=== PATIENT | male | born 1990 | race Caucasian/White ===

== ENCOUNTER 2022-04-21 17:22 | Inpatient (IN) ==
[2022-04-21] MEDS ORDERED: SODIUM CHLORIDE 0.9% 1000ML 2,000 ML IV ONE (17:57)
[2022-04-21] MEDS ORDERED: ACETAMINOPHEN 500 MG TAB PO STA (18:07)
[2022-04-21] MEDS ORDERED: LACTATED RINGER'S 500 ML IV ONE (18:08)
[2022-04-21] MEDS ORDERED: cefTRIAXone SODIUM 2,000 MG/70 ML BAG IV STA (18:08)
[2022-04-21 18:10] LABS: Basophils # (auto) 0.05 K/uL (0-0.2); Basophils % (auto) 0.3 %; Eosinophils # (auto) 0.07 K/uL (0-0.50); Eosinophils % (auto) 0.4 %; Hematocrit (blood only) 39.2 % (40.1-51.0); Immature Granulocytes # (auto) 0.27 K/uL (0.00-0.02); Immature Granulocytes % (auto) 1.6 %; Lymphocytes # (auto) 0.81 K/uL (1.2-3.4); Lymphocytes % (auto) 4.8 %; Mean Corpuscular Hemoglobin 30.6 pg (25.0-34.0); Mean Corpuscular Hgb Conc 35.7 g/dL (32.0-36.0); Mean Corpuscular Volume 85.8 fL (80.0-100.0); Mean Platelet Volume 9.8 fL (9.4-12.4); Monocytes # (auto) 0.86 K/uL (0.24-0.82); Monocytes % (auto) 5.1 %; Neutrophils # (auto) 14.79 K/uL (1.4-6.5); Neutrophils % (auto) 87.8 %; Platelet Count 202 K/uL (130-400); RDW Coefficient of Variation 11.7 % (11.5-14.5); RDW Standard Deviation 36.3 fL (36.4-46.3); Red Blood Count 4.57 M/uL (4.63-6.08); White Blood Count 16.85 K/ul (4.8-10.8)
--- NOTE | 2022-04-21 18:29 | Emergency Department Note ---
Impression & Plan Lower lobe pneumonia, Sepsis, Syncope and collapse ED Provider Note Provider: Miguelangel Chanel MD DATE OF SERVICE: 04/21/2022 CHIEF COMPLAINT: As of breath, body aches, possible seizure HISTORY OF PRESENT ILLNESS: Patient is a 31-year-old gentleman history of hypertension on valsartan & hydrochlorothiazide presenting here today with illness for the past 3 days. Reports cough and cold symptoms with diffuse myalgias and subjective fevers last day or 2. Has not been eating or drinking that well. Reports diffuse body aches again in the back neck. States that coworkers have recently tested positive for COVID. Not eating and drinking the best. Has been using some DayQuil. Evidently was in the kitchen going to have a couple coffee when the sudden he collapsed and woke up on the floor and had bit the tip of his tongue and urinated himself. No history of seizures reported. Denies specific injury from this fall just complains of some generalized body ache and headache. Unsure how long he may have been on the ground for. Reports some shortness of breath and central chest discomfort. Denies leg swelling. Does some distance for work. REVIEW OF SYSTEMS: A total of 10 review of systems was obtained and negative except as stated above in the HPI. PAST MEDICAL HISTORY: As noted above MEDICATIONS: Reviewed home medications with him SOCIAL HISTORY: Psychiatrist, occasional alcohol, PHYSICAL EXAM: GENERAL: alert and oriented in no acute distress on stretcher fatigued appearing Head: normocephalic and atraumatic EYES: No injection, discharge or icterus. PERRL, EOMI. NECK: Trachea midline. Supple able to range the neck chin to the chest and left and right. ENT: Mucous membranes pink and moist. His slight contusion to the tip of the tongue but no large bite kolb otherwise. Pharynx without erythema or exudate. LUNGS: Airway patent. No retractions. Breath sounds clear with good air entry bilaterally. HEART: Regular tachycardic rate and rhythm. No chest wall tenderness ABDOMEN: Soft and non-tender, without guarding or rebound. SKIN: Acyanotic, warm, diaphoretic EXTREMITIES: Without swelling, tenderness or deformity NEUROLOGICAL: No focal deficits. No aphasia. No facial droop or slurred speech. EK bpm sinus tachycardia. No PVC or PAC. No acute ST segment elevation or depression with a QTC of 440. CONTINUOUS CARDIAC MONITORING: was ordered and showed a heart rate of 100s-130s bpm in sinus tachycardia Patient's laboratory studies and imaging reviewed. Differential includes Infection, dehydration, metabolic abnormality, hypo/hyper glycemia, electrolyte disturbance, anemia, hypoxia, cardiac sources, intracerebral event, toxicologic, neurologic, as well as other pathologies. IMPRESSION/MEDICAL DECISION MAKING: Concern for possible infection. Experiencing some shortness of breath and chest pain and possible seizure today. Awake and alert answering questions now. Given some fluid hydration and Tylenol here. Cultures and lactate sent. Denies significant alcohol use with associated withdrawal. Having significant numbness or focal weakness in the extremities and generalized myalgias. Blood work here without anemia but a leukocytosis is noted. Empirically covered with antibiotics at this point. Viral testing ordered. We will complete a CT of the head given the possible seizure activity today as well as CT of the chest to exclude pneumonia or PE given his infectious symptoms as well as tachycardia and history of some travel. No clinical evidence of DVT on exam. Benign abdomen here. Able to range his neck fairly well and does not appear grossly meningitic. Also 3 days of illness lower suspicion this is be bacterial meningitis. Blood work with mild hyponatremia and hypokalemia. No lactate elevation. Normal renal function. No evidence of hepatitis based on labs. Troponin not elevated. Procalcitonin minimally elevated. CT of the head without acute findings. CT of the chest without PE. Questions bilateral lower lobe opacities/pneumonia. Received commune acquired treatment with ceftriaxone and azithromycin. Patient looking improved on reevaluation. Again flexing his head and sitting up in bed and does not appear grossly meningitic. Discussed with him I have a lower suspicion for meningitis at this time and will defer LP in shared decision-making given the findings. Could have been a seizure versus syncopal episode earlier but now at baseline. Still somewhat tachycardic although not hypoxic or hypotensive. Given this discussed further care here at the hospital and hospitalist was contacted. DIAGNOSIS: Bilateral lower lobe pneumonia, sepsis, syncope and collapse DISPOSITION: Hospitalist will evaluate Patient was agreeable with this plan. Critical Care I have personally spent 35 minutes of critical care time in the direct management of this patient. This includes bedside care, interpretation of diagnostic studies, and testing, discussion with consultants, patient, and family members, and other required patient management activities. These 35 minutes is in excess of all separately billable procedures. Past Med/Surg History Social History Smoking Status: Never smoker Hx Alcohol Use: Yes Alcohol type: beer Hx Substance Use: No Preferred Language: Upper Sorbian Communication Ability: Effective Utilization Engineer Required: No Beliefs That Will Affect Care: None Current Living Situation: Family Feels Safe at Home: Yes Safety Concerns: Feels Safe At This Time Assistive Devices: Glasses Allergies Allergies Allergy/AdvReac Type Severity Reaction Status Date / Time bee venom protein (honey bee) AdvReac Intermediate RED & Verified 04/21/22 20:42 SWOLLEN @ SITE Home Meds Home Medications Medication Instructions Recorded Confirmed atorvastatin 20 mg tablet 20 mg PO DAILY 04/21/22 04/21/22 [id number] 30 ml PO DIRECTED PRN .SYMPTOMS 04/21/22 04/21/22 5 mg-10 mg-325 mg-200mg/15 mL liq (Vicks DayQuil Severe Cold-Flu) valsartan 320 1 tab PO DAILY 04/21/22 04/21/22 mg-hydrochlorothiazide 25 mg tablet Results & Data (ED) Vital Signs Vital Signs - 24 hr 04/21/22 17:31 04/21/22 17:47 04/21/22 17:50 Temperature 37.6 C H Temperature Source Temporal Artery Scan Pulse Rate 156 H 140 H 137 H Pulse Rate from SpO2 Sensor Respiratory Rate 19 25 H 29 H Respiratory Effort / Characteristics Non-Labored Spontaneous Respiratory Depth Normal Blood Pressure 114/65 Blood Pressure Mean 81 Pulse Oximetry 92 Oxygen Delivery Method Room Air Sepsis Recent Fever Within 48 Hours Yes Sepsis New/Unexplained Change in Mental Status N/A Sepsis Action Taken by Nursing No Action Required 04/21/22 17:53 04/21/22 17:53 04/21/22 18:00 Temperature Temperature Source Pulse Rate 137 H Pulse Rate from SpO2 Sensor Respiratory Rate 26 H Respiratory Effort / Characteristics Respiratory Depth Blood Pressure 125/77 131/80 Blood Pressure Mean 93 97 Pulse Oximetry Oxygen Delivery Method Sepsis Recent Fever Within 48 Hours Sepsis New/Unexplained Change in Mental Status Sepsis Action Taken by Nursing 04/21/22 18:00 04/21/22 18:10 04/21/22 18:20 Temperature Temperature Source Pulse Rate 132 H 123 H 117 H Pulse Rate from SpO2 Sensor 124 H 118 H Respiratory Rate 17 31 H 28 H Respiratory Effort / Characteristics Respiratory Depth Blood Pressure Blood Pressure Mean Pulse Oximetry 92 93 Oxygen Delivery Method Sepsis Recent Fever Within 48 Hours Sepsis New/Unexplained Change in Mental Status Sepsis Action Taken by Nursing 04/21/22 18:30 04/21/22 18:30 04/21/22 19:07 Temperature Temperature Source Pulse Rate 116 H Pulse Rate from SpO2 Sensor 117 H Respiratory Rate 32 H Respiratory Effort / Characteristics Respiratory Depth Blood Pressure 121/74 121/67 Blood Pressure Mean 89 85 Pulse Oximetry 90 Oxygen Delivery Method Sepsis Recent Fever Within 48 Hours Sepsis New/Unexplained Change in Mental Status Sepsis Action Taken by Nursing 04/21/22 19:07 04/21/22 19:10 04/21/22 19:20 Temperature Temperature Source Pulse Rate 114 H 108 H Pulse Rate from SpO2 Sensor 114 H 117 H 107 H Respiratory Rate 20 24 Respiratory Effort / Characteristics Respiratory Depth Blood Pressure Blood Pressure Mean Pulse Oximetry 94 93 94 Oxygen Delivery Method Sepsis Recent Fever Within 48 Hours Sepsis New/Unexplained Change in Mental Status Sepsis Action Taken by Nursing 04/21/22 19:30 04/21/22 19:30 04/21/22 19:40 Temperature Temperature Source Pulse Rate 101 H 105 H Pulse Rate from SpO2 Sensor 102 H 104 H Respiratory Rate 24 27 H Respiratory Effort / Characteristics Respiratory Depth Blood Pressure 119/73 Blood Pressure Mean 88 Pulse Oximetry 94 92 Oxygen Delivery Method Room Air Sepsis Recent Fever Within 48 Hours Sepsis New/Unexplained Change in Mental Status Sepsis Action Taken by Nursing 04/21/22 19:50 Temperature 37.0 C Temperature Source Pulse Rate 100 H Pulse Rate from SpO2 Sensor 99 H Respiratory Rate 29 H Respiratory Effort / Characteristics Respiratory Depth Blood Pressure Blood Pressure Mean Pulse Oximetry 93 Oxygen Delivery Method Room Air Sepsis Recent Fever Within 48 Hours Sepsis New/Unexplained Change in Mental Status Sepsis Action Taken by Nursing Laboratory Data Result diagrams: 04/21/22 17:53 04/21/22 17:53 Lab Results 04/21/22 04/21/22 04/21/22 Range/Units 17:53 17:53 17:53 WBC 16.85 H (4.8-10.8) K/ul RBC 4.57 L (4.63-6.08) M/uL Hgb 14.0 (14.0-18.0) g/dl Hct 39.2 L (40.1-51.0) % MCV 85.8 (80.0-100.0) fL MCH 30.6 (25.0-34.0) pg MCHC 35.7 (32.0-36.0) g/dL RDW Std Deviation 36.3 L (36.4-46.3) fL RDW Coeff of Maverick 11.7 (11.5-14.5) % Plt Count 202 (130-400) K/uL MPV 9.8 (9.4-12.4) fL Immature Gran % (Auto) 1.6 % Neut % (Auto) 87.8 % Lymph % (Auto) 4.8 % [place] % (Auto) 5.1 % Eos % (Auto) 0.4 % Baso % (Auto) 0.3 % Neut # (Auto) 14.79 H (1.4-6.5) K/uL Lymph # (Auto) 0.81 L (1.2-3.4) K/uL [place] # (Auto) 0.86 H (0.24-0.82) K/uL Eos # (Auto) 0.07 (0-0.50) K/uL Baso # (Auto) 0.05 (0-0.2) K/uL Immature Gran # (Auto) 0.27 H (0.00-0.02) K/uL PT 11.0 (9.0-12.0) Seconds INR 1.0 (0.9-1.1) APTT 29.1 (21.0-31.0) Seconds PTT Ratio 1.1 Sodium 132 L (136-145) mmol/L Potassium 3.0 L (3.5-5.1) mmol/L Chloride 96 L (98-107) mmol/L Carbon Dioxide 23 (21-32) mmol/L Anion Gap 13 H (3-11) BUN 11 (6-23) mg/dl Creatinine 0.89 (0.6-1.4) mg/dl Est Cr Clr Drug Dosing 130.8 ml/min Est GFR ( Amer) 131.1 ml/min Est GFR (Non-Af Amer) 113.1 ml/min BUN/Creatinine Ratio 12.4 (10-20) Glucose 144 H (70-99(Fasting)) mg/dl Lactate (0.4-2.0) mmol/L Calcium 9.8 (8.5-10.1) mg/dl Magnesium 1.9 (1.7-2.4) mg/dl Total Bilirubin 0.7 (0.2-1.0) mg/dl AST 17 (13-39) U/L ALT 29 (7-52) U/L Alkaline Phosphatase 91 (34-104) U/L Troponin I High Sens 10.1 (0-20) pg/ml Total Protein 8.0 (6.0-8.3) gm/dl Albumin 4.6 (3.4-5.0) gm/dl Globulin 3.4 (2.5-4.0) gm/dl Albumin/Globulin Ratio 1.4 (0.9-2) Procalcitonin (0-0.5) ng/ml Urine Color Urine Appearance (Clear) Urine pH (4.5-7.5) Ur Specific [place] (1.000-1.030) Urine Protein (Negative) Urine Glucose (UA) (Negative) Urine Ketones (Negative) Urine Blood (Negative) Urine Nitrite (Negative) Urine Bilirubin (Negative) Urine Urobilinogen (Negative) Ur Leukocyte Esterase (Negative) Urine WBC (Auto) (0-5) /hpf Urine RBC (Auto) (0-4) /hpf U Hyaline Cast (Auto) (0-5) /lpf U Epithel Cells (Auto) (0-5) /lpf Urine Bacteria (Auto) (Negative) SARS-CoV-2 (PCR) (Negative) Influenza Type A (PCR) (Neg) Influenza Type B (PCR) (Neg) RSV (RT-PCR) (Neg) 04/21/22 04/21/22 04/21/22 Range/Units 17:53 17:53 19:30 WBC (4.8-10.8) K/ul RBC (4.63-6.08) M/uL Hgb (14.0-18.0) g/dl Hct (40.1-51.0) % MCV (80.0-100.0) fL MCH (25.0-34.0) pg MCHC (32.0-36.0) g/dL RDW Std Deviation (36.4-46.3) fL RDW Coeff of Maverick (11.5-14.5) % Plt Count (130-400) K/uL MPV (9.4-12.4) fL Immature Gran % (Auto) % Neut % (Auto) % Lymph % (Auto) % [place] % (Auto) % Eos % (Auto) % Baso % (Auto) % Neut # (Auto) (1.4-6.5) K/uL Lymph # (Auto) (1.2-3.4) K/uL [place] # (Auto) (0.24-0.82) K/uL Eos # (Auto) (0-0.50) K/uL Baso # (Auto) (0-0.2) K/uL Immature Gran # (Auto) (0.00-0.02) K/uL PT (9.0-12.0) Seconds INR (0.9-1.1) APTT (21.0-31.0) Seconds PTT Ratio Sodium (136-145) mmol/L Potassium (3.5-5.1) mmol/L Chloride (98-107) mmol/L Carbon Dioxide (21-32) mmol/L Anion Gap (3-11) BUN (6-23) mg/dl Creatinine (0.6-1.4) mg/dl Est Cr Clr Drug Dosing ml/min Est GFR ( Amer) ml/min Est GFR (Non-Af Amer) ml/min BUN/Creatinine Ratio (10-20) Glucose (70-99(Fasting)) mg/dl Lactate 1.3 (0.4-2.0) mmol/L Calcium (8.5-10.1) mg/dl Magnesium (1.7-2.4) mg/dl Total Bilirubin (0.2-1.0) mg/dl AST (13-39) U/L ALT (7-52) U/L Alkaline Phosphatase (34-104) U/L Troponin I High Sens (0-20) pg/ml Total Protein (6.0-8.3) gm/dl Albumin (3.4-5.0) gm/dl Globulin (2.5-4.0) gm/dl Albumin/Globulin Ratio (0.9-2) Procalcitonin 1.28 H (0-0.5) ng/ml Urine Color Yellow Urine Appearance Clear (Clear) Urine pH 6.5 (4.5-7.5) Ur Specific [place] 1.006 (1.000-1.030) Urine Protein Trace H (Negative) Urine Glucose (UA) Negative (Negative) Urine Ketones Trace H (Negative) Urine Blood Negative (Negative) Urine Nitrite Negative (Negative) Urine Bilirubin Negative (Negative) Urine Urobilinogen Negative (Negative) Ur Leukocyte Esterase Negative (Negative) Urine WBC (Auto) 1-5 (0-5) /hpf Urine RBC (Auto) 0-4 (0-4) /hpf U Hyaline Cast (Auto) 0 (0-5) /lpf U Epithel Cells (Auto) 5-10 H (0-5) /lpf Urine Bacteria (Auto) Negative (Negative) SARS-CoV-2 (PCR) (Negative) Influenza Type A (PCR) (Neg) Influenza Type B (PCR) (Neg) RSV (RT-PCR) (Neg) 04/21/22 Range/Units 19:30 WBC (4.8-10.8) K/ul RBC (4.63-6.08) M/uL Hgb (14.0-18.0) g/dl Hct (40.1-51.0) % MCV (80.0-100.0) fL MCH (25.0-34.0) pg MCHC (32.0-36.0) g/dL RDW Std Deviation (36.4-46.3) fL RDW Coeff of Maverick (11.5-14.5) % Plt Count (130-400) K/uL MPV (9.4-12.4) fL Immature Gran % (Auto) % Neut % (Auto) % Lymph % (Auto) % [place] % (Auto) % Eos % (Auto) % Baso % (Auto) % Neut # (Auto) (1.4-6.5) K/uL Lymph # (Auto) (1.2-3.4) K/uL [place] # (Auto) (0.24-0.82) K/uL Eos # (Auto) (0-0.50) K/uL Baso # (Auto) (0-0.2) K/uL Immature Gran # (Auto) (0.00-0.02) K/uL PT (9.0-12.0) Seconds INR (0.9-1.1) APTT (21.0-31.0) Seconds PTT Ratio Sodium (136-145) mmol/L Potassium (3.5-5.1) mmol/L Chloride (98-107) mmol/L Carbon Dioxide (21-32) mmol/L Anion Gap (3-11) BUN (6-23) mg/dl Creatinine (0.6-1.4) mg/dl Est Cr Clr Drug Dosing ml/min Est GFR ( Amer) ml/min Est GFR (Non-Af Amer) ml/min BUN/Creatinine Ratio (10-20) Glucose (70-99(Fasting)) mg/dl Lactate (0.4-2.0) mmol/L Calcium (8.5-10.1) mg/dl Magnesium (1.7-2.4) mg/dl Total Bilirubin (0.2-1.0) mg/dl AST (13-39) U/L ALT (7-52) U/L Alkaline Phosphatase (34-104) U/L Troponin I High Sens (0-20) pg/ml Total Protein (6.0-8.3) gm/dl Albumin (3.4-5.0) gm/dl Globulin (2.5-4.0) gm/dl Albumin/Globulin Ratio (0.9-2) Procalcitonin (0-0.5) ng/ml Urine Color Urine Appearance (Clear) Urine pH (4.5-7.5) Ur Specific [place] (1.000-1.030) Urine Protein (Negative) Urine Glucose (UA) (Negative) Urine Ketones (Negative) Urine Blood (Negative) Urine Nitrite (Negative) Urine Bilirubin (Negative) Urine Urobilinogen (Negative) Ur Leukocyte Esterase (Negative) Urine WBC (Auto) (0-5) /hpf Urine RBC (Auto) (0-4) /hpf U Hyaline Cast (Auto) (0-5) /lpf U Epithel Cells (Auto) (0-5) /lpf Urine Bacteria (Auto) (Negative) SARS-CoV-2 (PCR) NEGATIVE (Negative) Influenza Type A (PCR) Negative (Neg) Influenza Type B (PCR) Negative (Neg) RSV (RT-PCR) Negative (Neg) Administered Medications Lactated Ringer's (Lr) 1,000 mls @ 80 mls/hr IV .[id number] ONE Stop: 04/22/22 08:50 Last Infusion: 04/22/22 00:27 Dose: 80 mls/hr Documented By: Admin: 04/21/22 21:03 Dose: 80 mls/hr Documented By: [id number] Discontinued Medications Acetaminophen (Acetaminophen 500 Mg Tab) 1,000 mg PO NOW STA Stop: 04/21/22 18:08 Last Admin: 04/21/22 18:37 Dose: 1,000 mg Documented By: [id number] Azithromycin (Azithromycin 250 Mg Tab) 500 mg PO NOW ONE Stop: 04/21/22 19:39 Last Admin: 04/21/22 19:53 Dose: 500 mg Documented By: [id number] Gadobutrol (Gadobutrol 65ml Vial) 8.5 ml IV ONCE ONE Stop: 04/21/22 23:00 Last Admin: 04/21/22 22:59 Dose: 8.5 ml Documented By: TORSTEN Sodium Chloride (Nss 1000ml) 2,000 mls @ 999 mls/hr IV .Q2H1M ONE Stop: 04/21/22 19:57 Last Infusion: 04/21/22 20:41 Dose: 0 mls/hr Documented By: [id number] Admin: 04/21/22 18:38 Dose: 999 mls/hr Documented By: [id number] Lactated Ringer's (Lr) 500 mls @ 999 mls/hr IV .Q31M ONE Stop: 04/21/22 18:38 Last Infusion: 04/21/22 19:58 Dose: 0 mls/hr Documented By: [id number] Admin: 04/21/22 19:17 Dose: 999 mls/hr Documented By: [id number] Ceftriaxone Sodium (Rocephin) 2,000 mg in 70 mls @ 140 mls/hr IV NOW STA Stop: 04/21/22 18:37 Last Infusion: 04/21/22 19:57 Dose: 0 mls/hr Documented By: [id number] Admin: 04/21/22 19:17 Dose: 140 mls/hr Documented By: [id number] Magnesium Sulfate/Dextrose (Magnesium Sulfate / D5w) 1 gm in 100 mls @ 50 mls/hr IV ONE ONE Stop: 04/21/22 22:13 Last Infusion: 04/22/22 00:27 Dose: 0 mls/hr Documented By: Admin: 04/21/22 21:02 Dose: 50 mls/hr Documented By: [id number] Ioversol (Optiray 320 125ml) 114 ml IV ONCE ONE Stop: 04/21/22 19:04 Last Admin: 04/21/22 19:04 Dose: 114 ml Documented By: MARY Levalbuterol HCl (Levalbuterol Tartrate 15 Gm Hfa.Aer.Ad) 2 puffs INH NOW STA Stop: 04/21/22 20:22 Last Admin: 04/21/22 22:22 Dose: 2 puffs Documented By: KERA Potassium Chloride (Potassium Chloride Crtab 20 Meq Tabcr) 40 meq PO NOW STA Stop: 04/21/22 20:15 Last Admin: 04/21/22 21:02 Dose: 40 meq Documented By: [id number] Potassium Chloride (Potassium Chloride Crtab 20 Meq Tabcr) 40 meq PO TODAY@2300 ONE Stop: 04/21/22 23:01 Last Admin: 04/21/22 23:50 Dose: 40 meq Documented By: [id number] Imaging Data Radiologist's Impression: Chest CTA 04/21/22 18:07 CT angio chest PE protocol CLINICAL HISTORY: PE, tachy, fever, sob TECHNIQUE: Multidetector row helical CT of the chest was performed with angiographic protocol. Coronal and sagittal reformations were obtained. Coronal and sagittal MIPS were obtained from the axial data set and were submitted for review. Automated dose lowering techniques and/or adjustment according to patient size were utilized for this exam. CT DOSE: 508.19 mGycm Comparison: Comparison is made to FINDINGS: Lungs and pleura: Airspace opacities are in the bilateral lower lungs. Heart and pericardium: Heart size is normal. No pericardial effusion. Vessels: Evaluation for pulmonary embolism is limited due to patient motion. No evidence of central, lobar, or segmental embolus. Mediastinum and chalo: Unremarkable. Chest wall and lower neck: Unremarkable. Abdomen: Unremarkable. Bones: Unremarkable. IMPRESSION: 1. No evidence of pulmonary embolism. 2. Bilateral airspace opacities which may represent atelectasis, aspiration, and/or atypical pneumonia. ACT 112: Negative or not required by law. Electronically signed by: Parish Flowers M.D. 04/21/2022 7:[address] 04/21/22 18:07 CT head/brain wo con CLINICAL HISTORY: seizure, fall Technique: Contiguous axial CT images of the head were acquired from the base of the skull to the vertex without intravenous contrast administration. Images were viewed in brain, subdural and bone windows. Automated dose lowering techniques and/or adjustment according to patient size were utilized for this exam. Comparison: None available at the time of this dictation. Findings: The ventricles, basal cisterns, and cerebral sulci are normal. There is no acute intracranial hemorrhage or evidence of acute territorial infarction. Neither mass effect, shift of the midline structures, nor abnormal extra-axial fluid collections are shown. Imaged portions of the paranasal sinuses and mastoid air cells are clear. The orbits appear normal. There are no acute fractures of the calvaria or scalp swelling. Impression: No acute intracranial hemorrhage, no evidence of acute territorial infarction or other acute intracranial disease process. ACT 112: Negative or not required by law. Electronically signed by: Parish Flowers M.D. 04/21/2022 7:10 PM Discharge Plan Visit Data Chief Complaint: Seizure Stated Complaint: HAD SEIZURE AT HOME, POSSIBLY COVID POSITIVE ED Provider: Miguelangel Chanel Discharge Problem: Lower lobe pneumonia, Sepsis, Syncope and collapse Patient Disposition: Admitted As Inpatient Condition: Fair Discharge Instructions Interventions: ED Discharge Assessment Last Done: 04/22/22 00:21
[2022-04-21 18:31] LABS: Partial Thromboplastin Ratio 1.1; Partial Thromboplastin Time 29.1 Seconds (21.0-31.0)
[2022-04-21 18:34] LABS: Troponin I High Sensitivity 10.1 pg/ml (0-20)
[2022-04-21 18:35] LABS: Albumin Globulin Ratio 1.4 (0.9-2); Albumin Level 4.6 gm/dl (3.4-5.0); BUN Creatinine Ratio 12.4 (10-20); Bilirubin,Total 0.7 mg/dl (0.2-1.0); Calcium 9.8 mg/dl (8.5-10.1); Creatinine Clr Calc Pharmacy 130.8 ml/min; Est GFR (African American) 131.1 ml/min; Est GFR (Non-African American) 113.1 ml/min; Globulin 3.4 gm/dl (2.5-4.0); Magnesium 1.9 mg/dl (1.7-2.4)
[2022-04-21] MEDS ORDERED: OPTIRAY 320 125ml IV ONE (19:03)
--- NOTE | 2022-04-21 19:11 | CT Scan Report ---
CT head/brain wo con CLINICAL HISTORY: seizure, fall Technique: Contiguous axial CT images of the head were acquired from the base of the skull to the bradley kaylynn without intravenous contrast administration. Images were viewed in brain, subdural and [facility]. Automated dose lowering techniques and/or adjustment according to patient size were utilized for this exam. Comparison: None available at the time of this dictation. Findings: The ventricles, basal cisterns, and cerebral sulci are normal. There is no acute intracranial hemorrh age or evidence of acute territorial infarction. Neither mass effect, shift of the midline structures , nor abnormal extra-axial fluid collections are shown. Imaged portions of the paranasal sinuses and mastoid air cells are clear. The orbits appear normal. There are no acute fractures of the calvaria or scalp swelling. Impression: No acute intracranial hemorrhage, no evidence of acute territorial infarction or other acute intracra nial disease process. ACT 112: Negative or not required by law. Electronically signed by: Parish Flowers M.D. 04/21/2022 7:10 PM
--- NOTE | 2022-04-21 19:29 | CT Scan Report ---
CT angio chest PE protocol CLINICAL HISTORY: PE, tachy, fever, sob TECHNIQUE: Multidetector row helical CT of the chest was performed with angiographic protocol. Patel l and sagittal reformations were obtained. Coronal and sagittal MIPS were obtained from the axial reuben a set and were submitted for review. Automated dose lowering techniques and/or adjustment according to patient size were utilized for this exam. CT DOSE: 508.19 mGycm Comparison: Comparison is made to FINDINGS: Lungs and pleura: Airspace opacities are in the bilateral lower lungs. Heart and pericardium: Heart size is normal. No pericardial effusion. Vessels: Evaluation for pulmonary embolism is limited due to patient motion. No evidence of central, lobar, or segmental embolus. Mediastinum and chalo: Unremarkable. Chest wall and lower neck: Unremarkable. Abdomen: Unremarkable. Bones: Unremarkable. IMPRESSION: 1. No evidence of pulmonary embolism. 2. Bilateral airspace opacities which may represent atelectasis, aspiration, and/or atypical pneumon ia. ACT 112: Negative or not required by law. Electronically signed by: Parish Flowers M.D. 04/21/2022 7:27 PM
[2022-04-21] MEDS ORDERED: AZITHROMYCIN 250 MG TAB PO ONE (19:38)
[2022-04-21 19:55] LABS: Appearance Urine Clear (Clear); Bacteria Urine Automated Negative (Negative); Bilirubin Urine Negative (Negative); Blood Urine Negative (Negative); Cast Urine Automated 0 /lpf (0-5); Color Urine Yellow; Glucose Urine UA Negative (Negative); Ketones Urine Trace (Negative); Leukocyte Esterase Urine Negative (Negative); Nitrite Urine Negative (Negative); Protein Urine Trace (Negative); RBC Urine Automated 0-4 /hpf (0-4); Specific Gravity Urine 1.006 (1.000-1.030); Urobilinogen Urine Negative (Negative); pH Urine 6.5 (4.5-7.5)
[2022-04-21] MEDS ORDERED: MAGNESIUM SULFATE / D5W 1 GM/100 ML BAG IV ONE (20:14)
[2022-04-21] MEDS ORDERED: POTASSIUM CHLORIDE CRTAB 20 MEQ TABCR PO STA (20:14)
[2022-04-21] MEDS ORDERED: LACTATED RINGER'S 1,000 ML IV ONE (20:21)
[2022-04-21] MEDS ORDERED: LEVALBUTEROL TARTRATE 15 GM HFA.AER.AD INH STA (20:21)
[2022-04-21 20:25] LABS: Influenza A virus by PCR Negative (Neg); Influenza B virus by PCR Negative (Neg); RSV by PCR Negative (Neg); SARS CoV2 RNA(COVID-19)Cepheid NEGATIVE (Negative)
[2022-04-21] MEDS ORDERED: Patient's ALLERGY Info needs ENTERED SCH (20:45)
--- NOTE | 2022-04-21 21:42 | History & Physical Report ---
Date of Service April 21, 2022 Assessment & Plan (1) Sepsis: Plan: Secondary to community-acquired pneumonia Syncope secondary to illness ? Cough syncope ? Orthostasis from possible hypovolemia Rule out cardiac dysfunction rule out seizures given tongue biting incidents urinary incontinence hypertension, BP stable hyperlipidemia on statin Rx Hypokalemia secondary to poor p.o. intake and home diuretic Rx Hyperglycemia rule out DM Medical telemetry CS, Ceftriaxone and Doxycycline IVF Check orthostatic vitals TTE and EEG for syncope work-up EEG, MRI brain for possible seizure work-up Neurology consult Re: Possible seizure Replace electrolytes Hold home diuretic for now Check hemoglobin A1c DVT prophylaxis. Lovenox subcu Full code Text document was generated using [email or web address] voice recognition software. It may contain grammatical or spelling errors. Kindly contact undersigned for clarification of any documentation item in question. History of Present Illness Chief Complaint: Cough, passed out Primary Care Provider: Terry Gabriel History obtained from patient, family, and records. Medical history significant for hypertension, hyperlipidemia. 3 days history of junky cough symptoms with body aches. Poor appetite. Possible sick COVID-19 contacts at work. Patient completed COVID-19 vaccination. OTC DayQuil intake. Shortness of breath and central chest pain with coughing. Denies vomiting, denies aspiration. Patient is having a cup of coffee in the kitchen when he suddenly passed out. Woke up about couple minutes later having bit the tip of his tongue. Urinary incontinence noted. Patient brought to the ER. Patient given Ceftriaxone and Azithromycin. Medical History as above Surgical History : Dental surgery Family History : DM, heart disease; no seizures/brain tumors Personal/Social history : Non-smoker, no EtOH intake, psychiatrist Allergies Allergy/AdvReac Type Severity Reaction Status Date / Time bee venom protein (honey bee) AdvReac Intermediate RED & Verified 04/21/22 20:42 SWOLLEN @ SITE Home Medications Medication Instructions Recorded Confirmed Type atorvastatin 20 mg tablet 20 mg PO DAILY 04/21/22 04/21/22 History tenwelfnxzcyh-KK-jccfjkvgrjchk-guaif 30 ml PO DIRECTED PRN .SYMPTOMS 04/21/22 04/21/22 History 5 mg-10 mg-325 mg-200mg/15 mL liq (Vicks DayQuil Severe Cold-Flu) valsartan 320 1 tab PO DAILY 10/11/22 10/11/22 History mg-hydrochlorothiazide 25 mg tablet Past Med/Surg History Social History Smoking Status: Never smoker Hx Alcohol Use: Yes Alcohol type: beer Hx Substance Use: No Preferred Language: Welsh Communication Ability: Effective Liquid Sugar Fortifier Required: No Beliefs That Will Affect Care: None Current Living Situation: Family Feels Safe at Home: Yes Safety Concerns: Feels Safe At This Time Assistive Devices: Glasses Review of Systems Review of Systems: As per HPI, all other systems reviewed and negative Physical Exam Physical Exam: GENERAL: Comfortable, obese, pleasant, no respiratory distress SKIN: Normal color, warm HEENT: [place] palpebral conjunctivae, no ptosis, dry buccal mucosa NECK : Supple, no tenderness CHEST : CTA, no tenderness HEART : RRR, no obvious murmurs ABDOMEN: Some distention, nontender EXTREMITIES : No LE swelling/tenderness, no other conspicuous deformities noted NEUROLOGIC : Coherent, no facial asymmetry, no other gross focality Results & Data Results & Data ([facility]) Vital Signs (Past 12 Hours) Vital Signs Temp Pulse Resp BP Pulse Ox O2 Del Method 04/21/22 19:50 37.0 C 100 H 29 H 93 Room Air 04/21/22 19:40 105 H 27 H 92 Room Air 04/21/22 19:30 101 H 24 94 04/21/22 19:30 119/73 04/21/22 19:20 108 H 24 94 04/21/22 19:10 114 H 20 93 04/21/22 19:07 94 04/21/22 19:07 121/67 04/21/22 18:30 116 H 32 H 90 04/21/22 18:30 121/74 04/21/22 18:20 117 H 28 H 93 04/21/22 18:10 123 H 31 H 92 04/21/22 18:00 132 H 17 04/21/22 18:00 131/80 04/21/22 17:53 125/77 04/21/22 17:53 137 H 26 H 04/21/22 17:50 137 H 29 H 04/21/22 17:47 140 H 25 H 04/21/22 17:31 37.6 C H 156 H 19 114/65 92 Room Air Laboratory Results Laboratory Results WBC 16.85 K/ul (4.8-10.8) H 04/21/22 17:53 RBC 4.57 M/uL (4.63-6.08) L 04/21/22 17:53 Hgb 14.0 g/dl (14.0-18.0) 04/21/22 17:53 Hct 39.2 % (40.1-51.0) L 04/21/22 17:53 MCV 85.8 fL (80.0-100.0) 04/21/22 17:53 MCH 30.6 pg (25.0-34.0) 04/21/22 17:53 MCHC 35.7 g/dL (32.0-36.0) 04/21/22 17:53 RDW Std Deviation 36.3 fL (36.4-46.3) L 04/21/22 17:53 RDW Coeff of [place]ver[place] 11.7 % (11.5-14.5) 04/21/22 17:53 Plt Count 202 K/uL (130-400) 04/21/22 17:53 MPV 9.8 fL (9.4-12.4) 04/21/22 17:53 Immature Gran % (Auto) 1.6 % 04/21/22 17:53 Neut % (Auto) 87.8 % 04/21/22 17:53 Lymph % (Auto) 4.8 % 04/21/22 17:53 [place] % (Auto) 5.1 % 04/21/22 17:53 Eos % (Auto) 0.4 % 04/21/22 17:53 Baso % (Auto) 0.3 % 04/21/22 17:53 Neut # (Auto) 14.79 K/uL (1.4-6.5) H 04/21/22 17:53 Lymph # (Auto) 0.81 K/uL (1.2-3.4) L 04/21/22 17:53 [place] # (Auto) 0.86 K/uL (0.24-0.82) H 04/21/22 17:53 Eos # (Auto) 0.07 K/uL (0-0.50) 04/21/22 17:53 Baso # (Auto) 0.05 K/uL (0-0.2) 04/21/22 17:53 Immature Gran # (Auto) 0.27 K/uL (0.00-0.02) H 04/21/22 17:53 PT 11.0 Seconds (9.0-12.0) 04/21/22 17:53 INR 1.0 (0.9-1.1) 04/21/22 17:53 APTT 29.1 Seconds (21.0-31.0) 04/21/22 17:53 PTT Ratio 1.1 04/21/22 17:53 Sodium 132 mmol/L (136-145) L 04/21/22 17:53 Potassium 3.0 mmol/L (3.5-5.1) L 04/21/22 17:53 Chloride 96 mmol/L (98-107) L 04/21/22 17:53 Carbon Dioxide 23 mmol/L (21-32) 04/21/22 17:53 Anion Gap 13 (3-11) H 04/21/22 17:53 BUN 11 mg/dl (6-23) 04/21/22 17:53 Creatinine 0.89 mg/dl (0.6-1.4) 04/21/22 17:53 Est Cr Clr Drug Dosing 130.8 ml/min 04/21/22 17:53 Est GFR ( Amer) 131.1 ml/min 04/21/22 17:53 Est GFR (Non-Af Amer) 113.1 ml/min 04/21/22 17:53 BUN/Creatinine Ratio 12.4 (10-20) 04/21/22 17:53 Glucose 144 mg/dl (70-99(Fasting)) H 04/21/22 17:53 Lactate 1.3 mmol/L (0.4-2.0) 04/21/22 17:53 Calcium 9.8 mg/dl (8.5-10.1) 04/21/22 17:53 Magnesium 1.9 mg/dl (1.7-2.4) 04/21/22 17:53 Total Bilirubin 0.7 mg/dl (0.2-1.0) 04/21/22 17:53 AST 17 U/L (13-39) 04/21/22 17:53 ALT 29 U/L (7-52) 04/21/22 17:53 Alkaline Phosphatase 91 U/L (34-104) 04/21/22 17:53 Troponin I High Sens 10.1 pg/ml (0-20) 04/21/22 17:53 Total Protein 8.0 gm/dl (6.0-8.3) 04/21/22 17:53 Albumin 4.6 gm/dl (3.4-5.0) 04/21/22 17:53 Globulin 3.4 gm/dl (2.5-4.0) 04/21/22 17:53 Albumin/Globulin Ratio 1.4 (0.9-2) 04/21/22 17:53 Procalcitonin 1.28 ng/ml (0-0.5) H 04/21/22 17:53 Urine Color Yellow 04/21/22 19:30 Urine Appearance Clear (Clear) 04/21/22 19: Urine pH 6.5 (4.5-7.5) 04/21/22 19: Ur Specific [place] 1.006 (1.000-1.030) 04/21/22 19: Urine Protein Trace (Negative) H 04/21/22 19:30 Urine Glucose (UA) Negative (Negative) 04/21/22: Urine Ketones Trace (Negative) H 04/21/22 19:30 Urine Blood Negative (Negative) 04/21/22 19: Urine Nitrite Negative (Negative) 04/21/22 19: Urine Bilirubin Negative (Negative) 04/21/22 19:30 Urine Urobilinogen Negative (Negative) 04/21/22 19:30 Ur Leukocyte Esterase Negative (Negative) 04/21/22 19:30 Urine WBC (Auto) 1-5 /hpf (0-5) 04/21/22: Urine RBC (Auto) 0-4 /hpf (0-4) 04/21/22: U Hyaline Cast (Auto) 0 /lpf (0-5) 04/21/22 19:30 U Epithel Cells (Auto) 5-10 /lpf (0-5) H 04/21/22 19:30 Urine Bacteria (Auto) Negative (Negative) 04/21/22 19: SARS-CoV-2 (PCR) NEGATIVE (Negative) 04/21/22 19:30 Influenza Type A (PCR) Negative (Neg) 04/21/22 19:30 Influenza Type B (PCR) Negative (Neg) 04/21/22 19:30 RSV (RT-PCR) Negative (Neg) 04/21/22 19:30 Impressions Chest CTA 04/21/22 18:07 CT angio chest PE protocol CLINICAL HISTORY: PE, tachy, fever, sob TECHNIQUE: Multidetector row helical CT of the chest was performed with angiographic protocol. Coronal and sagittal reformations were obtained. Coronal and sagittal MIPS were obtained from the axial data set and were submitted for review. Automated dose lowering techniques and/or adjustment according to patient size were utilized for this exam. CT DOSE: 508.19 mGycm Comparison: Comparison is made to FINDINGS: Lungs and pleura: Airspace opacities are in the bilateral lower lungs. Heart and pericardium: Heart size is normal. No pericardial effusion. Vessels: Evaluation for pulmonary embolism is limited due to patient motion. No evidence of central, lobar, or segmental embolus. Mediastinum and chalo: Unremarkable. Chest wall and lower neck: Unremarkable. Abdomen: Unremarkable. Bones: Unremarkable. IMPRESSION: 1. No evidence of pulmonary embolism. 2. Bilateral airspace opacities which may represent atelectasis, aspiration, and/or atypical pneumonia. ACT 112: Negative or not required by law. Electronically signed by: Parish Flowers M.D. 04/21/2022 7:[address] 04/21/22 18:07 CT head/brain wo con CLINICAL HISTORY: seizure, fall Technique: Contiguous axial CT images of the head were acquired from the base of the skull to the vertex without intravenous contrast administration. Images were viewed in brain, subdural and bone windows. Automated dose lowering techniques and/or adjustment according to patient size were utilized for this exam. Comparison: None available at the time of this dictation. Findings: The ventricles, basal cisterns, and cerebral sulci are normal. There is no acute intracranial hemorrhage or evidence of acute territorial infarction. Neither mass effect, shift of the midline structures, nor abnormal extra-axial fluid collections are shown. Imaged portions of the paranasal sinuses and mastoid air cells are clear. The orbits appear normal. There are no acute fractures of the calvaria or scalp swelling. Impression: No acute intracranial hemorrhage, no evidence of acute territorial infarction or other acute intracranial disease process. ACT 112: Negative or not required by law. Electronically signed by: Parish Flowers M.D. 04/21/2022 7:10 PM Diagnostic Findings EKG as per my interpretation : Rate 130, sinus tachycardia, normal axis, incomplete RBBB, no ischemia
[2022-04-21] MEDS ORDERED: GADOBUTROL 65ML VIAL IV ONE (22:59)
[2022-04-21] MEDS ORDERED: POTASSIUM CHLORIDE CRTAB 20 MEQ TABCR PO ONE (23:00)
[2022-04-22] MEDS ORDERED: PROMETHAZINE HCL 12.5 MG in SODIUM CHLORIDE 0.9% 50 ML IV PRN (00:25)
[2022-04-22] MEDS ORDERED: LORazepam 1 MG/1 ML SYR IV PRN (00:25)
[2022-04-22] MEDS ORDERED: ACETAMINOPHEN 325 MG TAB PO PRN (00:25)
[2022-04-22] MEDS ORDERED: LORazepam 1 MG in SYRINGE 0 ML IV PRN (00:29)
[2022-04-22 07:05] LABS: Basophils # (auto) 0.02 K/uL (0-0.2); Basophils % (auto) 0.3 %; Eosinophils % (auto) 2.6 %; Hemoglobin 12.5 g/dl (14.0-18.0); Immature Granulocytes # (auto) 0.06 K/uL (0.00-0.02); Immature Granulocytes % (auto) 0.8 %; Lymphocytes # (auto) 1.15 K/uL (1.2-3.4); Lymphocytes % (auto) 14.9 %; Mean Corpuscular Hemoglobin 30.5 pg (25.0-34.0); Mean Corpuscular Hgb Conc 34.7 g/dL (32.0-36.0); Mean Corpuscular Volume 87.8 fL (80.0-100.0); Mean Platelet Volume 9.6 fL (9.4-12.4); Monocytes # (auto) 0.36 K/uL (0.24-0.82); Monocytes % (auto) 4.7 %; Neutrophils # (auto) 5.95 K/uL (1.4-6.5); Neutrophils % (auto) 76.7 %; Platelet Count 185 K/uL (130-400); RDW Coefficient of Variation 11.8 % (11.5-14.5); RDW Standard Deviation 38.2 fL (36.4-46.3); White Blood Count 7.74 K/ul (4.8-10.8)
--- NOTE | 2022-04-22 07:28 | Magnetic Resonance Report ---
Brain MRI WITH AND WITHOUT CONTRAST HISTORY: Seizure. TECHNIQUE: Multiplanar multisequence MRI of the brain was performed both before and after the intrave nous administration of contrast. COMPARISON STUDY: None. FINDINGS: There are no areas of restricted diffusion to suggest acute infarction. The midline structu res are intact. The paranasal sinuses are clear. The mastoid air cells are clear. The ventricles and sulci are within normal limits for age. There is no mass, hematoma, midline shift. The major vascular flow-voids at the skull base are well maintained. Postcontrast sequences show no areas of abnormal e nhancement. IMPRESSION: No acute intracranial abnormality. ACT 112: Negative or not required by law. Electronically signed by: Adam Sloan M.D. 04/22/2022 7:27 AM
[2022-04-22 07:37] LABS: BUN Creatinine Ratio 11.4 (10-20); Calcium 9.4 mg/dl (8.5-10.1); Creatinine Clr Calc Pharmacy 171.6 ml/min; Est GFR (African American) 137.7 ml/min; Est GFR (Non-African American) 118.8 ml/min; Magnesium 2.3 mg/dl (1.7-2.4); Potassium 3.8 mmol/L (3.5-5.1)
[2022-04-22 07:42] LABS: Thyroid Stimulating Hormone 7.918 uIu/ml (0.300-4.500)
[2022-04-22 07:50] LABS: Estimated Average Glucose 85 mg/dl; Hemoglobin A1C 4.6 % (4.5-5.6)
[2022-04-22 08:13] LABS: T4 Free Thyroxine 0.71 ng/dl (0.61-1.60)
[2022-04-22] MEDS: ATORVASTATIN 20 MG TAB PO SCH (08:50)
[2022-04-22] MEDS: ENOXAPARIN INJ 40 MG/0.4 ML SYR SQ SCH (08:50)
[2022-04-22] MEDS: DOXYCYCLINE HYCLATE 100 MG CAP PO SCH ×2 (08:50→19:11)
[2022-04-22] MEDS ORDERED: VALSARTAN 80 MG TAB PO SCH (09:00)
--- NOTE | 2022-04-22 12:42 | Hospitalist Progress Note ---
Date of Service April 22, 2022 Assessment & Plan (1) Sepsis: Plan: - likely secondary to penumonia - CTA negative for PE but with bilateral airspace opacities, WBC to 16, HR 100s on admission - presents with cough, body aches, shortness of breath, syncope - started on ceftriaxone and doxycyline for CAP - will continue - initial improvement - s/p IVF - continue to monitor (2) Lower lobe pneumonia: Plan: - abx as above - tolerating RA (3) Syncope and collapse: Plan: - likely due to dehydration in the setting of sepsis secondary to pneumonia - had tongue biting and incontinence - no history of seizures - recent concussion ~3 months ago - brain MRI and CT negative - EEG and neuro consulted - will monitor (4) Elevated TSH: Plan: - TSH up to 7 - FT4 at 0.71 - likely not clinically significant as patient without symptoms of hypothyroid but also acutely ill - will need PCP follow up with repeat TSH, FT4 once recovered from infection (5) HTN (hypertension): Plan: - continue home meds as tolerated Plan DVT ppx: lovenox Code Status: Full Code Dispo: tele for oscar Walker MD [facility] Medicine Admission and Anticipated Discharge Date Admission Date: April 21, 2022 Subjective Patient presented with syncope after several days of cough, body ache, poor appetite, shortness of breath. Found to have likely pneumonia, also being worked up for seizure, MRI brain and CT head and neck imaging negative for stroke or significant stenosis. TTE wnl. Patient reports some improvement in symptoms but still with productive cough and body aches. Also has chest pain with coughing. Denies fevers or chills, n/v/d, dysuria, leg swelling. Review of Systems Review of Systems: All systems reviewed & are unremarkable except as noted in Subjective Physical Exam Physical Exam: GENERAL: Comfortable, obese, pleasant, no respiratory distress SKIN: Normal color, warm HEENT: [place] palpebral conjunctivae, no ptosis, dry buccal mucosa NECK : Supple, no tenderness CHEST : crackles in left and right lower bases, R>L. no wheezing HEART : RRR, no obvious murmurs ABDOMEN: Some distention, nontender EXTREMITIES : No LE swelling/tenderness, no other conspicuous deformities noted NEUROLOGIC : Coherent, no facial asymmetry, no other gross focality Results & Data Results & Data ([facility]) Vital Signs (Past 12 Hours) Vital Signs Temp Pulse Pulse Resp BP Pulse Ox O2 Del Method 04/22/22 11:28 36.7 C 92 H 18 121/62 93 Room Air 04/22/22 08:00 36.8 C 83 18 113/71 92 Room Air 04/22/22 06:09 80 04/22/22 03:57 36.4 C L 90 18 115/75 90 04/22/22 00:49 87 Diagnostic Findings Laboratory Results WBC 7.74 K/ul (4.8-10.8) 04/22/22 06:47 RBC 4.10 M/uL (4.63-6.08) L 04/22/22 06:47 Hgb 12.5 g/dl (14.0-18.0) L 04/22/22 06:47 Hct 36.0 % (40.1-51.0) L 04/22/22 06:47 MCV 87.8 fL (80.0-100.0) 04/22/22 06:47 MCH 30.5 pg (25.0-34.0) 04/22/22 06:47 MCHC 34.7 g/dL (32.0-36.0) 04/22/22 06:47 RDW Std Deviation 38.2 fL (36.4-46.3) 04/22/22 06:47 RDW Coeff of Maverick 11.8 % (11.5-14.5) 04/22/22 06:47 Plt Count 185 K/uL (130-400) 04/22/22 06:47 MPV 9.6 fL (9.4-12.4) 04/22/22 06:47 Immature Gran % (Auto) 0.8 % 04/22/22 06:47 Neut % (Auto) 76.7 % 04/22/22 06:47 Lymph % (Auto) 14.9 % 04/22/22 06:47 [place] % (Auto) 4.7 % 04/22/22 06:47 Eos % (Auto) 2.6 % 04/22/22 06:47 Baso % (Auto) 0.3 % 04/22/22 06:47 Neut # (Auto) 5.95 K/uL (1.4-6.5) 04/22/22 06:47 Lymph # (Auto) 1.15 K/uL (1.2-3.4) L 04/22/22 06:47 [place] # (Auto) 0.36 K/uL (0.24-0.82) 04/22/22 06:47 Eos # (Auto) 0.20 K/uL (0-0.50) 04/22/22 06:47 Baso # (Auto) 0.02 K/uL (0-0.2) 04/22/22 06:47 Immature Gran # (Auto) 0.06 K/uL (0.00-0.02) H 04/22/22 06:47 PT 11.0 Seconds (9.0-12.0) 04/21/22 17:53 INR 1.0 (0.9-1.1) 04/21/22 17:53 APTT 29.1 Seconds (21.0-31.0) 04/21/22 17:53 PTT Ratio 1.1 04/21/22 17:53 Sodium 139 mmol/L (136-145) 04/22/22 06:47 Potassium 3.8 mmol/L (3.5-5.1) D 04/22/22 06:47 Chloride 107 mmol/L (98-107) 04/22/22 06:47 Carbon Dioxide 25 mmol/L (21-32) 04/22/22 06:47 Anion Gap 7 (3-11) 04/22/22 06:47 BUN 9 mg/dl (6-23) 04/22/22 06:47 Creatinine 0.79 mg/dl (0.6-1.4) 04/22/22 06:47 Est Cr Clr Drug Dosing 171.6 ml/min 04/22/22 06:47 Est GFR ( Amer) 137.7 ml/min 04/22/22 06:47 Est GFR (Non-Af Amer) 118.8 ml/min 04/22/22 06:47 BUN/Creatinine Ratio 11.4 (10-20) 04/22/22 06:47 Glucose 114 mg/dl (70-99(Fasting)) H 04/22/22 06:47 Estimat Average Glucose 85 mg/dl 04/21/22 17:53 Hemoglobin A1c 4.6 % (4.5-5.6) 04/21/22 17:53 Lactate 1.3 mmol/L (0.4-2.0) 04/21/22 17:53 Calcium 9.4 mg/dl (8.5-10.1) 04/22/22 06:47 Magnesium 2.3 mg/dl (1.7-2.4) 04/22/22 06:47 Total Bilirubin 0.7 mg/dl (0.2-1.0) 04/21/22 17:53 AST 17 U/L (13-39) 04/21/22 17:53 ALT 29 U/L (7-52) 04/21/22 17:53 Alkaline Phosphatase 91 U/L (34-104) 04/21/22 17:53 Troponin I High Sens 10.1 pg/ml (0-20) 04/21/22 17:53 Total Protein 8.0 gm/dl (6.0-8.3) 04/21/22 17:53 Albumin 4.6 gm/dl (3.4-5.0) 04/21/22 17:53 Globulin 3.4 gm/dl (2.5-4.0) 04/21/22 17:53 Albumin/Globulin Ratio 1.4 (0.9-2) 04/21/22 17:53 Procalcitonin 1.28 ng/ml (0-0.5) H 04/21/22 17:53 TSH 7.918 uIu/ml (0.300-4.500) H 04/22/22 06:47 Free T4 0.71 ng/dl (0.61-1.60) 04/22/22 06:47 Urine Color Yellow 04/21/22 19:30 Urine Appearance Clear (Clear) 04/21/22 19:30 Urine pH 6.5 (4.5-7.5) 04/21/22 19:30 Ur Specific [place] 1.006 (1.000-1.030) 04/21/22 19:30 Urine Protein Trace (Negative) H 04/21/22 19:30 Urine Glucose (UA) Negative (Negative) 04/21/22 19:30 Urine Ketones Trace (Negative) H 04/21/22 19:30 Urine Blood Negative (Negative) 04/21/22 19: Urine Nitrite Negative (Negative) 04/21/22 19: Urine Bilirubin Negative (Negative) 04/21/22 19:30 Urine Urobilinogen Negative (Negative) 04/21/22 19:30 Ur Leukocyte Esterase Negative (Negative) 04/21/22 19:30 Urine WBC (Auto) 1-5 /hpf (0-5) 04/21/22 19:30 Urine RBC (Auto) 0-4 /hpf (0-4) 04/21/22 19:30 U Hyaline Cast (Auto) 0 /lpf (0-5) 04/21/22 19:30 U Epithel Cells (Auto) 5-10 /lpf (0-5) H 04/21/22 19:30 Urine Bacteria (Auto) Negative (Negative) 04/21/22 19:30 SARS-CoV-2 (PCR) NEGATIVE (Negative) 04/21/22 19:30 Influenza Type A (PCR) Negative (Neg) 04/21/22 19:30 Influenza Type B (PCR) Negative (Neg) 04/21/22 19:30 RSV (RT-PCR) Negative (Neg) 04/21/22 19:30 Impressions Chest CTA 04/21/22 18:07 CT angio chest PE protocol CLINICAL HISTORY: PE, tachy, fever, sob TECHNIQUE: Multidetector row helical CT of the chest was performed with angiographic protocol. Coronal and sagittal reformations were obtained. Coronal and sagittal MIPS were obtained from the axial data set and were submitted for review. Automated dose lowering techniques and/or adjustment according to patient size were utilized for this exam. CT DOSE: 508.19 mGycm Comparison: Comparison is made to FINDINGS: Lungs and pleura: Airspace opacities are in the bilateral lower lungs. Heart and pericardium: Heart size is normal. No pericardial effusion. Vessels: Evaluation for pulmonary embolism is limited due to patient motion. No evidence of central, lobar, or segmental embolus. Mediastinum and chalo: Unremarkable. Chest wall and lower neck: Unremarkable. Abdomen: Unremarkable. Bones: Unremarkable. IMPRESSION: 1. No evidence of pulmonary embolism. 2. Bilateral airspace opacities which may represent atelectasis, aspiration, and/or atypical pneumonia. ACT 112: Negative or not required by law. Electronically signed by: Parish Flowers M.D. 04/21/2022 7:[address] 04/21/22 18:07 CT head/brain wo con CLINICAL HISTORY: seizure, fall Technique: Contiguous axial CT images of the head were acquired from the base of the skull to the vertex without intravenous contrast administration. Images were viewed in brain, subdural and bone windows. Automated dose lowering techniques and/or adjustment according to patient size were utilized for this exam. Comparison: None available at the time of this dictation. Findings: The ventricles, basal cisterns, and cerebral sulci are normal. There is no acute intracranial hemorrhage or evidence of acute territorial infarction. Neither mass effect, shift of the midline structures, nor abnormal extra-axial fluid collections are shown. Imaged portions of the paranasal sinuses and mastoid air cells are clear. The orbits appear normal. There are no acute fractures of the calvaria or scalp swelling. Impression: No acute intracranial hemorrhage, no evidence of acute territorial infarction or other acute intracranial disease process. ACT 112: Negative or not required by law. Electronically signed by: Parish Flowers M.D. 04/21/2022 7:10 PM Brain MRI 04/21/22 21:48 Brain MRI WITH AND WITHOUT CONTRAST HISTORY: Seizure. TECHNIQUE: Multiplanar multisequence MRI of the brain was performed both before and after the intravenous administration of contrast. COMPARISON STUDY: None. FINDINGS: There are no areas of restricted diffusion to suggest acute infarction. The midline structures are intact. The paranasal sinuses are clear. The mastoid air cells are clear. The ventricles and sulci are within normal limits for age. There is no mass, hematoma, midline shift. The major vascular flow-voids at the skull base are well maintained. Postcontrast sequences show no areas of abnormal enhancement. IMPRESSION: No acute intracranial abnormality. ACT 112: Negative or not required by law. Electronically signed by: Adam Sloan M.D. 04/22/2022 7:27 AM Medications Administered Current Inpatient Medications Acetaminophen (Acetaminophen 325 Mg Tab) 650 mg PO Q4H PRN PRN Reason: Pain or Fever Stop: 05/22/22 00:24 Atorvastatin Calcium (Atorvastatin 20 Mg Tab) 20 mg PO DAILY TITA Stop: 05/22/22 08:59 Last Admin: 04/22/22 08:50 Dose: 20 mg Doxycycline Hyclate (Doxycycline Hyclate 100 Mg Cap) 100 mg PO BID TITA Stop: 04/29/22 08:59 Last Admin: 04/22/22 08:50 Dose: 100 mg Enoxaparin Sodium (Enoxaparin Inj 40 Mg/0.4 Ml Syr) 40 mg SQ QAM [facility] Stop: 05/22/22 08:59 Last Admin: 04/22/22 08:50 Dose: 40 mg Promethazine HCl 12.5 mg/ (Sodium Chloride) 50.5 mls @ 202 mls/hr IV Q6H PRN PRN Reason: Nausea And Vomiting Stop: 05/22/22 00:24 Ceftriaxone Sodium 2,000 mg/ (Dextrose) 70 mls @ 100 mls/hr IV Q24H [facility]; Protocol Stop: 04/29/22 18:59 Lorazepam 1 mg/ Syringe 1 mls @ 2 mls/min IV Q10M PRN PRN Reason: SEIZURE Stop: 05/22/22 00:28 Valsartan (Valsartan 80 Mg Tab) [facility] Stop: 05/22/22 08:59 Last Admin: 04/22/22 08:49 Dose: 320 mg
--- NOTE | 2022-04-22 14:22 | Electrocardiogram Report ---
Test Reason : Blood Pressure : / mmHG Vent. Rate : 137 BPM Atrial Rate : 138 BPM P-R Int : 142 ms QRS Dur : 096 ms QT Int : 292 ms P-R-T Axes : 049 019 035 degrees QTc Int : 440 ms Sinus tachycardia Otherwise normal ECG No previous ECGs available Confirmed by Misael Castellanos ([id number]) on 04/22/2022 2:21:59 PM Referred By: REFERRED SELF Confirmed By:Misael Castellanos
--- NOTE | 2022-04-22 15:28 | Electroencephalogram ---
EEG Procedure Note Date of Service April 22, 2022 Start / End Times Start Time: 9:08 End Time: 9:28 Referring Physician Luke Lerner MD History Syncope Home Medication List Medication Instructions Recorded Confirmed Type atorvastatin 20 mg tablet 20 mg PO DAILY 04/21/22 04/21/22 History vwyyxbmhckeoq-FO-mzhjbbfaucbjx-guaif 30 ml PO DIRECTED PRN .SYMPTOMS 04/21/22 04/21/22 History 5 mg-10 mg-325 mg-200mg/15 mL liq (Vicks DayQuil Severe Cold-Flu) valsartan 320 1 tab PO DAILY 04/21/22 04/21/22 History mg-hydrochlorothiazide 25 mg tablet Inpatient Medication List Atorvastatin Calcium (Atorvastatin 20 Mg Tab) 20 mg PO DAILY TITA Stop: 05/22/22 08:59 Last Admin: 04/22/22 08:50 Dose: 20 mg Documented By: MG Doxycycline Hyclate (Doxycycline Hyclate 100 Mg Cap) 100 mg PO BID TITA Stop: 04/29/22 08:59 Last Admin: 04/22/22 08:50 Dose: 100 mg Documented By: MG Enoxaparin Sodium (Enoxaparin Inj 40 Mg/0.4 Ml Syr) 40 mg SQ QAM TITA Stop: 05/22/22 08:59 Last Admin: 04/22/22 08:50 Dose: 40 mg Documented By: MG Valsartan (Valsartan 80 Mg Tab) 320 mg PO QAM TITA Stop: 05/22/22 08:59 Last Admin: 04/22/22 08:49 Dose: 320 mg Documented By: MG Discontinued Medications Acetaminophen (Acetaminophen 500 Mg Tab) 1,000 mg PO NOW STA Stop: 04/21/22 18:08 Last Admin: 04/21/22 18:37 Dose: 1,000 mg Documented By: [id number] Azithromycin (Azithromycin 250 Mg Tab) 500 mg PO NOW ONE Stop: 04/21/22 19:39 Last Admin: 04/21/22 19:53 Dose: 500 mg Documented By: [id number] Gadobutrol (Gadobutrol 65ml Vial) 8.5 ml IV ONCE ONE Stop: 04/21/22 23:00 Last Admin: 04/21/22 22:59 Dose: 8.5 ml Documented By: TORSTEN Sodium Chloride (Nss 1000ml) 2,000 mls @ 999 mls/hr IV .Q2H1M ONE Stop: 04/21/22 19:57 Last Infusion: 04/21/22 20:41 Dose: 0 mls/hr Documented By: [id number] Admin: 04/21/22 18:38 Dose: 999 mls/hr Documented By: [id number] Lactated Ringer's (Lr) 500 mls @ 999 mls/hr IV .Q31M ONE Stop: 04/21/22 18:38 Last Infusion: 04/21/22 19:58 Dose: 0 mls/hr Documented By: [id number] Admin: 04/21/22 19:17 Dose: 999 mls/hr Documented By: [id number] Ceftriaxone Sodium (Rocephin) 2,000 mg in 70 mls @ 140 mls/hr IV NOW STA Stop: 04/21/22 18:37 Last Infusion: 04/21/22 19:57 Dose: 0 mls/hr Documented By: [id number] Admin: 04/21/22 19:17 Dose: 140 mls/hr Documented By: [id number] Magnesium Sulfate/Dextrose (Magnesium Sulfate / D5w) 1 gm in 100 mls @ 50 mls/hr IV ONE ONE Stop: 04/21/22 22:13 Last Infusion: 04/22/22 00:27 Dose: 0 mls/hr Documented By: Admin: 04/21/22 21:02 Dose: 50 mls/hr Documented By: [id number] Lactated Ringer's (Lr) 1,000 mls @ 80 mls/hr IV .[id number] ONE Stop: 04/22/22 08:50 Last Infusion: 04/22/22 10:12 Dose: 0 mls/hr Documented By: Infusion: 04/22/22 00:27 Dose: 80 mls/hr Documented By: Admin: 04/21/22 21:03 Dose: 80 mls/hr Documented By: [id number] Ioversol (Optiray 320 125ml) 114 ml IV ONCE ONE Stop: 04/21/22 19:04 Last Admin: 04/21/22 19:04 Dose: 114 ml Documented By: MARY Levalbuterol HCl (Levalbuterol Tartrate 15 Gm Hfa.Aer.Ad) 2 puffs INH NOW STA Stop: 04/21/22 20:22 Last Admin: 04/21/22 22:22 Dose: 2 puffs Documented By: KERA Potassium Chloride (Potassium Chloride Crtab 20 Meq Tabcr) 40 meq PO NOW STA Stop: 04/21/22 20:15 Last Admin: 04/21/22 21:02 Dose: 40 meq Documented By: [id number] Potassium Chloride (Potassium Chloride Crtab 20 Meq Tabcr) 40 meq PO TODAY@2300 ONE Stop: 04/21/22 23:01 Last Admin: 04/21/22 23:50 Dose: 40 meq Documented By: [id number] Description This is a 21 electrode EEG with a single channel dedicated to limited EKG. The electrodes were placed in accordance with the International 10-20 system. Interpretation During restful wakefulness, there is 20 to 30 V, 10 to 11 Hz posterior activity, which attenuates with eye opening bilaterally. Background activity shows good organization without focal slowing. Photic stimulations induce posterior driving responses bilaterally and symmetrically. Hyperventilation is not attempted. Sleep is not captured during the study. There is no electrographic seizures or epileptogenic discharge. Impression: This is a normal EEG, recorded in wakefulness only. There is no electrographic seizures or epileptogenic discharge. Clinical Correlation Normal routine interictal EEG does not rule out seizure disorder. If clinically indicated, a follow-up study with sleep deprivation and prolonged recording might offer further information.
--- NOTE | 2022-04-22 15:53 | Neurology Consultation ---
Date of Consultation April 22, 2022 Assessment & Plan (1) Convulsive syncope: Impression: The patient has been sick for last few days, with poor oral intake, and coughing excessively, which likely induced vasovagal hyperactivity, resulting a syncopal episode. There is a high possibility of old syncope prov oked convulsion, based on having tongue biting and urinary incontinence. He has no history of seizure or seizure-like activities. Brain MRI and EEG are normal. Plan/recommendations: There is no indication for antiepileptic treatment at this time. Based on Department of Transportation rules, the patient should not drive motor vehicles until getting clearance from neurology clinic. He is neurologically stable to discharge home. Follow-up with neurology clinic in a month. (2) Lower lobe pneumonia: Impression: Chest x-ray suggestive of airspace disease. The patient has responded very well to antibiotic treatment. (3) Sepsis: Impression: Based on initial presentation, sepsis was considered likely. The patient has responded very well to treatment. Plan Thank you for the consultation. 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 He has been suffering from recurrent cough, with body aches for last few days. His appetite has been poor and oral intake has been much less than usual. Yesterday, while walking, he began coughing excessively, which induced some vomiting. Just after that, he felt dizzy, lightheaded, then apparently, passed out. He regained his consciousness shortly, without any postictal confusion. He noticed urinary incontinence and a small laceration of tip of his tongue. This event was not witnessed by anyone else. He denies having any seizure or seizure-like activities in the past. In emergency department, chest CT showed airspace disease but no pulmonary embolism. He is started on antibiotic treatment, and since yesterday, his cough, body aches, and fatigue has been improved mostly. Brain MRI did not show intracranial pathology, and EEG was also normal. He has no neurological symptoms at this time. He denies headache and neck pain. There is no finding to suggest syncope induced head trauma. The patient denies family history of seizure disorder. I have reviewed the patient's chart including imaging studies and visualized them personally. I have discussed the case with the patient and answered his questions in detail. Allergies Allergy/AdvReac Type Severity Reaction Status Date / Time bee venom protein (honey bee) AdvReac Intermediate RED & Verified 04/21/22 20:42 SWOLLEN @ SITE Home Medications Medication Instructions Recorded Confirmed Type atorvastatin 20 mg tablet 20 mg PO DAILY 04/21/22 04/21/22 History lhywkcobkniwr-MO-qysfhmqvmlbeh-guaif 30 ml PO DIRECTED PRN .SYMPTOMS 04/21/22 04/21/22 History 5 mg-10 mg-325 mg-200mg/15 mL liq (Vicks DayQuil Severe Cold-Flu) valsartan 320 1 tab PO DAILY 04/21/22 04/21/22 History mg-hydrochlorothiazide 25 mg tablet Patient History Social History Smoking Status: Never smoker Hx Alcohol Use: Yes Alcohol type: beer Hx Substance Use: No Preferred Language: French Communication Ability: Effective Pipe Bowls Paint Trimmer Required: No Beliefs That Will Affect Care: None Current Living Situation: Family Feels Safe at Home: Yes Safety Concerns: Feels Safe At This Time Assistive Devices: None Review of Systems Review of Systems: All systems reviewed & are unremarkable except as noted in HPI & below Physical Exam Physical Exam: General Examination: Constitutional: Well developed person in no acute distress. HEENT: Normal exam with inspection. CV: Hearth rhythm is regular. Neck: Supple, no carotid bruits. Lungs: Non-labored and comfortable breathing. Abdomen: Soft, non-tender, non-distended. Skin: No rash or ecchymosis. Extremities: No edema or cyanosis NEUROLOGICAL EXAMINATION: Mental Status: Alert and oriented to place, person and time. Cranial Nerves: II-XII are intact. No nystagmus. Funduscopy: Normal looking optic discs. Motor: 5/5 in all extremities without asymmetry. Tone: Normal without spasticity or rigidity. Sensory: Intact to all sensory modalities. Coordination: No dysmetria with FTN testing. Speech: Fluent. Comprehension is intact. Gait: Normal. No ataxia or abnormal walking pattern. Musculoskeletal: Normal muscle bulk, no atrophy. Results & Data ([facility]) Vital Signs (Past 12 Hours) Vital Signs Temp Pulse Pulse Resp BP Pulse Ox O2 Del Method 04/22/22 14:20 92 H 04/22/22 15:24 36.8 C 85 18 123/75 94 Room Air 04/22/22 11:28 36.7 C 92 H 18 121/62 93 Room Air 04/22/22 08:00 36.8 C 83 18 113/71 92 Room Air 04/22/22 06:09 80 04/22/22 03:57 36.4 C L 90 18 115/75 90 Laboratory Results Laboratory Results - last 24 hr 04/21/22 04/21/22 04/21/22 17:53 17:53 17:53 WBC 16.85 H RBC 4.57 L Hgb 14.0 Hct 39.2 L MCV 85.8 MCH 30.6 MCHC 35.7 RDW Std Deviation 36.3 L RDW Coeff of Maverick 11.7 Plt Count 202 MPV 9.8 Immature Gran % (Auto) 1.6 Neut % (Auto) 87.8 Lymph % (Auto) 4.8 Storey % (Auto) 5.1 Eos % (Auto) 0.4 Baso % (Auto) 0.3 Neut # (Auto) 14.79 H Lymph # (Auto) 0.81 L [place] # (Auto) 0.86 H Eos # (Auto) 0.07 Baso # (Auto) 0.05 Immature Gran # (Auto) 0.27 H PT 11.0 INR 1.0 APTT 29.1 PTT Ratio 1.1 Sodium 132 L Potassium 3.0 L Chloride 96 L Carbon Dioxide 23 Anion Gap 13 H BUN 11 Creatinine 0.89 Est Cr Clr Drug Dosing 130.8 Est GFR ( Amer) 131.1 Est GFR (Non-Af Amer) 113.1 BUN/Creatinine Ratio 12.4 Glucose 144 H Estimat Average Glucose Hemoglobin A1c Lactate Calcium 9.8 Magnesium 1.9 Total Bilirubin 0.7 AST 17 ALT 29 Alkaline Phosphatase 91 Troponin I High Sens 10.1 Total Protein 8.0 Albumin 4.6 Globulin 3.4 Albumin/Globulin Ratio 1.4 Procalcitonin TSH Free T4 Urine Color Urine Appearance Urine pH Ur Specific [place] Urine Protein Urine Glucose (UA) Urine Ketones Urine Blood Urine Nitrite Urine Bilirubin Urine Urobilinogen Ur Leukocyte Esterase Urine WBC (Auto) Urine RBC (Auto) U Hyaline Cast (Auto) U Epithel Cells (Auto) Urine Bacteria (Auto) SARS-CoV-2 (PCR) Influenza Type A (PCR) Influenza Type B (PCR) RSV (RT-PCR) 04/21/22 04/21/22 04/21/22 17:53 17:53 17:53 WBC RBC Hgb Hct MCV MCH MCHC RDW Std Deviation RDW Coeff of [place] Plt Count MPV Immature Gran % (Auto) Neut % (Auto) Lymph % (Auto) [place] % (Auto) Eos % (Auto) Baso % (Auto) Neut # (Auto) Lymph # (Auto) [place] # (Auto) Eos # (Auto) Baso # (Auto) Immature Gran # (Auto) PT INR APTT PTT Ratio Sodium Potassium Chloride Carbon Dioxide Anion Gap BUN Creatinine Est Cr Clr Drug Dosing Est GFR ( Amer) Est GFR (Non-Af Amer) BUN/Creatinine Ratio Glucose Estimat Average Glucose 85 Hemoglobin A1c 4.6 Lactate 1.3 Calcium Magnesium Total Bilirubin AST ALT Alkaline Phosphatase Troponin I High Sens Total Protein Albumin Globulin Albumin/Globulin Ratio Procalcitonin 1.28 H TSH Free T4 Urine Color Urine Appearance Urine pH Ur Specific [place] Urine Protein Urine Glucose (UA) Urine Ketones Urine Blood Urine Nitrite Urine Bilirubin Urine Urobilinogen Ur Leukocyte Esterase Urine WBC (Auto) Urine RBC (Auto) U Hyaline Cast (Auto) U Epithel Cells (Auto) Urine Bacteria (Auto) SARS-CoV-2 (PCR) Influenza Type A (PCR) Influenza Type B (PCR) RSV (RT-PCR) 04/21/22 04/21/22 04/22/22 19:30 19:30 06:47 WBC 7.74 RBC 4.10 L Hgb 12.5 L Hct 36.0 L MCV 87.8 MCH 30.5 MCHC 34.7 RDW Std Deviation 38.2 RDW Coeff of [place] 11.8 Plt Count 185 MPV 9.6 Immature Gran % (Auto) 0.8 Neut % (Auto) 76.7 Lymph % (Auto) 14.9 Storey % (Auto) 4.7 Eos % (Auto) 2.6 Baso % (Auto) 0.3 Neut # (Auto) 5.95 Lymph # (Auto) 1.15 L [place] # (Auto) 0.36 Eos # (Auto) 0.20 Baso # (Auto) 0.02 Immature Gran # (Auto) 0.06 H PT INR APTT PTT Ratio Sodium Potassium Chloride Carbon Dioxide Anion Gap BUN Creatinine Est Cr Clr Drug Dosing Est GFR ( Amer) Est GFR (Non-Af Amer) BUN/Creatinine Ratio Glucose Estimat Average Glucose Hemoglobin A1c Lactate Calcium Magnesium Total Bilirubin AST ALT Alkaline Phosphatase Troponin I High Sens Total Protein Albumin Globulin Albumin/Globulin Ratio Procalcitonin TSH Free T4 Urine Color Yellow Urine Appearance Clear Urine pH 6.5 Ur Specific [place] 1.006 Urine Protein Trace H Urine Glucose (UA) Negative Urine Ketones Trace H Urine Blood Negative Urine Nitrite Negative Urine Bilirubin Negative Urine Urobilinogen Negative Ur Leukocyte Esterase Negative Urine WBC (Auto) 1-5 Urine RBC (Auto) 0-4 U Hyaline Cast (Auto) 0 U Epithel Cells (Auto) 5-10 H Urine Bacteria (Auto) Negative SARS-CoV-2 (PCR) NEGATIVE Influenza Type A (PCR) Negative Influenza Type B (PCR) Negative RSV (RT-PCR) Negative 04/22/22 04/22/22 06:47 06:47 WBC RBC Hgb Hct MCV MCH MCHC RDW Std Deviation RDW Coeff of Maverick Plt Count MPV Immature Gran % (Auto) Neut % (Auto) Lymph % (Auto) [place] % (Auto) Eos % (Auto) Baso % (Auto) Neut # (Auto) Lymph # (Auto) [place]y # (Auto) Eos # (Auto) Baso # (Auto) Immature Gran # (Auto) PT INR APTT PTT Ratio Sodium 139 Potassium 3.8 D Chloride 107 Carbon Dioxide 25 Anion Gap 7 BUN 9 Creatinine 0.79 Est Cr Clr Drug Dosing 171.6 Est GFR ( Amer) 137.7 Est GFR (Non-Af Amer) 118.8 BUN/Creatinine Ratio 11.4 Glucose 114 H Estimat Average Glucose Hemoglobin A1c Lactate Calcium 9.4 Magnesium 2.3 Total Bilirubin AST ALT Alkaline Phosphatase Troponin I High Sens Total Protein Albumin Globulin Albumin/Globulin Ratio Procalcitonin TSH 7.918 H Free T4 0.71 Urine Color Urine Appearance Urine pH Ur Specific [place] Urine Protein Urine Glucose (UA) Urine Ketones Urine Blood Urine Nitrite Urine Bilirubin Urine Urobilinogen Ur Leukocyte Esterase Urine WBC (Auto) Urine RBC (Auto) U Hyaline Cast (Auto) U Epithel Cells (Auto) Urine Bacteria (Auto) SARS-CoV-2 (PCR) Influenza Type A (PCR) Influenza Type B (PCR) RSV (RT-PCR) Diagnostic Findings Chest CTA 04/21/22 18:07 CT angio chest PE protocol CLINICAL HISTORY: PE, tachy, fever, sob TECHNIQUE: Multidetector row helical CT of the chest was performed with angiographic protocol. Coronal and sagittal reformations were obtained. Coronal and sagittal MIPS were obtained from the axial data set and were submitted for review. Automated dose lowering techniques and/or adjustment according to patient size were utilized for this exam. CT DOSE: 508.19 mGycm Comparison: Comparison is made to FINDINGS: Lungs and pleura: Airspace opacities are in the bilateral lower lungs. Heart and pericardium: Heart size is normal. No pericardial effusion. Vessels: Evaluation for pulmonary embolism is limited due to patient motion. No evidence of central, lobar, or segmental embolus. Mediastinum and chalo: Unremarkable. Chest wall and lower neck: Unremarkable. Abdomen: Unremarkable. Bones: Unremarkable. IMPRESSION: 1. No evidence of pulmonary embolism. 2. Bilateral airspace opacities which may represent atelectasis, aspiration, and/or atypical pneumonia. ACT 112: Negative or not required by law. Electronically signed by: Parish Flowers M.D. 04/21/2022 7:[address] 04/21/22 18:07 CT head/brain wo con CLINICAL HISTORY: seizure, fall Technique: Contiguous axial CT images of the head were acquired from the base of the skull to the vertex without intravenous contrast administration. Images were viewed in brain, subdural and bone windows. Automated dose lowering techniques and/or adjustment according to patient size were utilized for this exam. Comparison: None available at the time of this dictation. Findings: The ventricles, basal cisterns, and cerebral sulci are normal. There is no acute intracranial hemorrhage or evidence of acute territorial infarction. Neither mass effect, shift of the midline structures, nor abnormal extra-axial fluid collections are shown. Imaged portions of the paranasal sinuses and mastoid air cells are clear. The orbits appear normal. There are no acute fractures of the calvaria or scalp swelling. Impression: No acute intracranial hemorrhage, no evidence of acute territorial infarction or other acute intracranial disease process. ACT 112: Negative or not required by law. Electronically signed by: Parish Flowers M.D. 04/21/2022 7:10 PM Brain MRI 04/21/22 21:48 Brain MRI WITH AND WITHOUT CONTRAST HISTORY: Seizure. TECHNIQUE: Multiplanar multisequence MRI of the brain was performed both before and after the intravenous administration of contrast. COMPARISON STUDY: None. FINDINGS: There are no areas of restricted diffusion to suggest acute infarction. The midline structures are intact. The paranasal sinuses are clear. The mastoid air cells are clear. The ventricles and sulci are within normal limits for age. There is no mass, hematoma, midline shift. The major vascular flow-voids at the skull base are well maintained. Postcontrast sequences show no areas of abnormal enhancement. IMPRESSION: No acute intracranial abnormality. ACT 112: Negative or not required by law. Electronically signed by: Adam Sloan M.D. 04/22/2022 7:27 AM EEG-- normal
[2022-04-22] MEDS ORDERED: cefTRIAXone SODIUM 2,000 MG in DEXTROSE 5% 50 ML IV SCH (19:00)
[2022-04-23 07:30] LABS: Basophils # (auto) 0.04 K/uL (0-0.2); Basophils % (auto) 0.5 %; Eosinophils # (auto) 0.24 K/uL (0-0.50); Eosinophils % (auto) 3.1 %; Hematocrit (blood only) 36.7 % (40.1-51.0); Hemoglobin 12.8 g/dl (14.0-18.0); Immature Granulocytes # (auto) 0.04 K/uL (0.00-0.02); Immature Granulocytes % (auto) 0.5 %; Lymphocytes # (auto) 1.32 K/uL (1.2-3.4); Mean Corpuscular Hemoglobin 30.5 pg (25.0-34.0); Mean Corpuscular Hgb Conc 34.9 g/dL (32.0-36.0); Mean Corpuscular Volume 87.6 fL (80.0-100.0); Mean Platelet Volume 9.9 fL (9.4-12.4); Monocytes # (auto) 0.42 K/uL (0.24-0.82); Monocytes % (auto) 5.4 %; Neutrophils # (auto) 5.72 K/uL (1.4-6.5); Neutrophils % (auto) 73.5 %; Platelet Count 217 K/uL (130-400); RDW Coefficient of Variation 11.8 % (11.5-14.5); RDW Standard Deviation 37.7 fL (36.4-46.3); Red Blood Count 4.19 M/uL (4.63-6.08); White Blood Count 7.78 K/ul (4.8-10.8)
[2022-04-23 07:58] LABS: BUN Creatinine Ratio 14.3 (10-20); Calcium 9.6 mg/dl (8.5-10.1); Creatinine Clr Calc Pharmacy 174.6 ml/min; Est GFR (African American) 139.2 ml/min; Est GFR (Non-African American) 120.1 ml/min; Phosphorus 3.9 mg/dl (2.5-4.9); Potassium 3.8 mmol/L (3.5-5.1)
[2022-04-23 09:10] LABS: Magnesium 2.1 mg/dl (1.7-2.4)
[2022-04-23] MEDS: DOXYCYCLINE HYCLATE 100 MG CAP PO SCH (09:41)
[2022-04-23] MEDS: ATORVASTATIN 20 MG TAB PO SCH (09:41)
[2022-04-23] MEDS: ENOXAPARIN INJ 40 MG/0.4 ML SYR SQ SCH (09:42)
--- NOTE | 2022-04-23 10:40 | Discharge Summary ---
Date of Service April 23, 2022 Admission HPI Per Admitting Provider History obtained from patient, family, and records. Medical history significant for hypertension, hyperlipidemia. 3 days history of junky cough symptoms with body aches. Poor appetite. Possible sick COVID-19 contacts at work. Patient completed COVID-19 vaccination. OTC DayQuil intake. Shortness of breath and central chest pain with coughing. Denies vomiting, denies aspiration. Patient is having a cup of coffee in the kitchen when he suddenly passed out. Woke up about couple minutes later having bit the tip of his tongue. Urinary incontinence noted. Patient brought to the ER. Patient given Ceftriaxone and Azithromycin. Medical History as above Surgical History : Dental surgery Family History : DM, heart disease; no seizures/brain tumors Personal/Social history : Non-smoker, no EtOH intake, psychiatrist Admission Exam Per Admitting Provider GENERAL: Comfortable, obese, pleasant, no respiratory distress SKIN: Normal color, warm HEENT: [place] palpebral conjunctivae, no ptosis, dry buccal mucosa NECK : Supple, no tenderness CHEST : crackles in left and right lower bases, R>L. no wheezing HEART : RRR, no obvious murmurs ABDOMEN: Some distention, nontender EXTREMITIES : No LE swelling/tenderness, no other conspicuous deformities noted NEUROLOGIC : Coherent, no facial asymmetry, no other gross focality Principal Diagnosis pneumonia Discharge Exam GENERAL: Comfortable, obese, pleasant, no respiratory distress SKIN: Normal color, warm HEENT: [place] palpebral conjunctivae, no ptosis, dry buccal mucosa NECK : Supple, no tenderness CHEST : crackles in left and right lower bases but improved, R>L. no wheezing HEART : RRR, no obvious murmurs ABDOMEN: Some distention, nontender EXTREMITIES : No LE swelling/tenderness, no other conspicuous deformities noted NEUROLOGIC : Coherent, no facial asymmetry, no other gross focality Discharge Data Allergies Allergy/AdvReac Type Severity Reaction Status Date / Time bee venom protein (honey bee) AdvReac Intermediate RED & Verified 04/21/22 20:42 SWOLLEN @ SITE Consultations 04/21/22 20:34 ED Decision to Admit Stat 04/22/22 00:25 Consult Neurology Routine Ordered Studies 04/21/22 18:07 CT angio chest PE protocol Stat CT head/brain wo con Stat 04/21/22 21:48 MRI Brain [MR brain seizure wo/w con] Urgent Hospital Course (1) Sepsis: - likely secondary to penumonia - CTA negative for PE but with bilateral airspace opacities, WBC to 16, HR 100s on admission - presents with cough, body aches, shortness of breath, syncope - started on ceftriaxone and doxycyline for CAP - s/p IVF - continue to monitor - marked improvement in symptoms, tolerating RA well - sepsis resolved (2) Lower lobe pneumonia: - abx as above - tolerating RA - ok for discharge with 5 day course of doxycycline - follow up with PCP (3) Syncope and collapse: - likely due to dehydration in the setting of sepsis secondary to pneumonia - had tongue biting and incontinence - no history of seizures - recent concussion ~3 months ago - brain MRI and CT negative - EEG and neuro consulted - negative - low concern for seizure, no AEDs needed - follow up with neurology for driving assessment (4) Elevated TSH: - TSH up to 7 - FT4 at 0.71 - likely not clinically significant as patient without symptoms of hypothyroid but also acutely ill - will need PCP follow up with repeat TSH, FT4 once recovered from infection (5) HTN (hypertension): - continue home meds as tolerated Plan DVT ppx: lovenox Code Status: Full Code Dispo: tele for now Luciano Walker MD [facility] Medicine Total Time Total Time Spent Total Time Spent (In Minutes): 25 Total Time Includes: Examination of the Patient, Discharge Planning and Medication Reconciliation Discharge Plan Discharge Items Patient Disposition: Home - Self-Care Reason For Visit: SEPSIS, SYNCOPE Discharge Diagnosis: pneumonia Condition on Discharge: Fair Activity: Resume your previous activity Non-emergency contact: Primary Care Provider and Neurologist Call non-emergency contact if: you have any medication questions Follow-up/Referrals: Jermaine Moreira MD [Physician] - Terry Gabriel DO [Primary Care Provider] - Diet: Heart Healthy Addtl Attending Provider Instructions: You were admitted with synope/fainting, found to have pneumonia and dehydration. You were given antibiotics as well as IV fluids with improvement in your respiratory symptoms and others symptoms. You were seen by neurology for evaluation of possible seizure, which was negative. You had an MRI of your brain as well as CT scan of head and neck that was negative for any abnormalities. You will continue on antibiotics for a total of 5 days. You should follow up with your primary care doctor as well as a neurologist for driving clearance. You also had an elevation in your thyroid stimulating hormone but had normal thyroid hormone levels. You should have your Primary care doctor repeat a TSH and Free T4 in about 2-4 weeks after recovering from your infection. Pending Studies at Discharge: No Stand-Alone Forms: [facility], Sm[facility] Cessation Medications and DC Order Prescriptions: New doxycycline hyclate 100 mg Capsule 100 mg PO BID Qty: 7 0RF Continued atorvastatin 20 mg tablet 20 mg PO DAILY valsartan-hydrochlorothiazide 320-25 mg tablet 1 tab PO DAILY Vicks DayQuil Severe Cold-Flu 1-06-497-200 mg/15 mL Liquid 30 ml PO DIRECTED PRN (Reason: .SYMPTOMS) Discharge Orders: Discharge Order (Routine); Ordered 04/23/22 Ordered By: Luciano Bone/Other Patient Handouts: What Is Pneumonia?, Dehydration Admission Data Admit Date/Time: 04/21/22 21:44 Attending Provider: Luciano Walker Admit Provider: Luke Lerner Primary Care Provider: Terry Gabriel Other Providers: Luke Lerner ; Jermaine Moreira Other Interventions: Discharge Summary Assessment (RN) Last Done: 04/23/22 10:06
== END 2022-04-23 10:35 | disposition home or self-care (01) | DRG 871 ==
LOC: ED 17:22 → 2N 21:44

== ENCOUNTER 2024-01-13 07:46 | Inpatient (IN) ==
[2024-01-13] MEDS: SODIUM CHLORIDE 0.9% 1,000 ML IV STA (08:09)
[2024-01-13] MEDS: LABETALOL HCL IV 5 MG/ML 20ML IV STA (08:09)
[2024-01-13] MEDS: METOPROLOL TARTRATE 1 MG/ML VIAL IV STA ×3 (08:10→09:32)
--- NOTE | 2024-01-13 08:10 | Emergency Department Note ---
ED Visit Note I was consulted by the Advanced Practice Provider. I personally made/approved the management plan and take responsibility for the patient management. I performed a substantive portion of the visit. This includes the aspects of: EKGI have independently interpreted EKG which shows a rapid A-fib without ischemic changes I have personally evaluated this patient examined him and reviewed the pertinent labs and data. I have discussed the case with Nedra Cutler, the physician clinical trials assistant and agree with the plan. Please refer to the PA note. This patient comes in after having palpitations that started this morning denies chest pain or shortness of breath. On the monitor he has a narrow complex tachycardia ,there is some irregularity to it and appears to be A-fib. No history of A-fib he is on a keto diet so I do worry about electrolytes we did add a magnesium and thyroid. He appears tachycardic with a narrow complex irregular tachycardia seen on the monitor when I examined him he is stable otherwise and appears well and in no distress . He was given IV normal saline bolus. And we ordered IV Lopressor to help slow him down. He did receive additional doses of IV Lopressor for a total of 3, with this his heart rate was trending downward definitely in the 120s generally. He felt a lot better. He tells me he did drink a lot of alcohol yesterday and this could be more of a holiday heart type picture he has never had a history of A-fib and I do think needs to be admitted for further treatment and evaluation we have consulted the hospitalist to see him for these measures. .
--- NOTE | 2024-01-13 08:11 | Emergency Department Note ---
Impression & Plan Atrial fibrillation with rapid ventricular response, Palpitations ED Provider Note CHIEF COMPLAINT: Palpitations HISTORY OF PRESENT ILLNESS: This 33-year-old male patient presents to the emergency department via private vehicle for evaluation palpitations. The patient states he awoke this morning with a fluttering sensation in his chest. He notes that he feels that his heart is skipping a beat intermittently. He states that there has been no chest pain or shortness of breath. The patient notes that he switched to a keto diet about 3 to 4 weeks ago. He states he has had no carbs in that time. He states while he was taking a shower, he felt very dizzy and lightheaded. The symptoms have resolved. Patient denies any recent medication changes. He does report a history of hypertension and hyperlipidemia. He denies any use of OTC supplements. He denies any recent fever or illness. REVIEW OF SYSTEMS: A 10 system review of systems was performed with positives and pertinent negatives listed in the history of present illness. All other systems were reviewed and are negative. ALLERGIES: honey bee PHYSICAL EXAM: VITALS: Vitals are noted on the nurse's note and reviewed by myself. Vital signs stable. GENERAL: This is a 33 year old male, in no acute distress, nondiaphoretic, well- developed well-nourished. SKIN: The skin was without rashes, erythema, edema, or bruising. There is no tenting of the skin. Capillary refill less than 2 seconds. HEAD: Normocephalic atraumatic. EARS: External auditory canals clear, tympanic membranes pearly evans without erythema or effusion bilaterally. No hemotympanum. Negative stokes sign EYES: Pupils equal round and reactive to light and accommodation. Conjunctivae without injection, sclerae without icterus. Extraocular movements intact. NOSE: Patent, turbinates without inflammation or discharge. No sinus tenderness. MOUTH: Mucous membranes moist. Tonsils are not enlarged. Pharynx without erythema or exudate. Uvula midline. Airway patent. Tongue does not deviate. NECK: Supple without nuchal rigidity. No lymphadenopathy. Cervical spine is nontender. No JVD. HEART: Regular rate and rhythm without murmurs gallops or rubs. LUNGS: Clear to auscultation bilaterally without wheezes, rales or rhonchi. No retractions or accessory muscle use. ABDOMEN: Positive bowel sounds x 4. Soft, nontender, without masses or organomegaly. Castro sign negative. No guarding or rebound tenderness. MUSCULOSKELETAL: No muscle atrophy, erythema, or edema noted. Full range of motion without joint tenderness in all extremities. No tenderness to palpation. Normal gait. Strength 5/5 throughout. NEURO: Patient was alert and oriented to person place and time. Normal sensation to light and sharp touch. Deep tendon reflexes 2+ throughout. No focal neurological deficits. An order was placed for continuous quality assurance monitor final. The monitor showed atrial fibrillation at a ventricular rate of 180 bpm, per my interpretation. EKG was reviewed by myself and found to be atrial fibrillation with RVR at a rate of 176 beats per minute and per my interpretation reveals no ST elevation or depression. No prior EKG available for comparison. Imaging as interpreted by myself and the radiologist revealed no acute findings, with radiologist interpretation as above. I agree with the radiologist's findings as based upon my independent interpretation. EMERGENCY DEPARTMENT COURSE: The patient was seen and evaluated as above. The patient presents for palpitations and general illness. Upon arrival, he was found to be tachycardic in the 180s and in atrial fibrillation. I discussed case with my attending physician. IV access was obtained, labs were drawn. Patient was hydrated with 2 L of IV fluids. The patient was medicated with IV Lopressor 5 mg x 3 while here in the emergency department with mild improvement in his rate. He was ultimately placed on a diltiazem drip with bolus. Labs reviewed. No leukocytosis, anemia, thrombocytopenia. Renal, hepatic function, and electrolytes without significant abnormality. Coags normal. D- dimer 200. Troponin 3.6. Lipase 38 and TSH 4.006. The patient remained in atrial fibrillation throughout his ED stay. Suspect holiday heart may be contributing to his symptoms, as he notes he was drinking alcohol last evening and has recently changed his diet and has not been consuming carbs. Electrolytes and metabolic function without acute abnormalities at this time. D-dimer was negative, low suspicion for clot at this time. Troponin was 3.6. Low suspicion for ACS. I discussed case with the hospitalist, Dr. Sinclair, [facility] Hospitalist physician. She did agree to see the patient for admission. Please see her dictation regarding ongoing management care of this patient. I attest that I have personally reviewed the patient medication list. I attest that I have reviewed the patient's blood pressure and it was found to be normal GCS: 15 In the evaluation and treatment of this patient the following differential diagnoses were entertained: Premature contractions, electrolyte abnormality, cardiac dysrhythmia, thyroid dysfunction, pulmonary embolism, infection, gastrointestinal, as well as other pathologies. The chart was completed utilizing [employer] Speech voice recognition software. Grammatical errors, random word insertions, pronoun errors, and incomplete sentences are an occasional consequence of this system due to software limitations, ambient noise, and hardware issues. Any formal questions or concerns about the content, text, or information contained within the body of this dictation should be directly addressed to the provider for clarification. Past Med/Surg History Problem List (Updated 01/13/24 @ 15:47 by Nedra Cutler PA-C) Palpitations (Acute) Hyperlipidemia Atrial fibrillation with rapid ventricular response (Acute) HTN (hypertension) Elevated TSH Medical History Convulsive syncope Lower lobe pneumonia Social History Smoking Status: Never smoker Hx Alcohol Use: Yes Alcohol type: beer Hx Substance Use: No Preferred Language: Kosovan Communication Ability: Effective Crane Man Required: No Beliefs That Will Affect Care: None Current Living Situation: Spouse Other Information That Helps Us Care for You: No Feels Safe at Home: Yes Safety Concerns: Feels Safe At This Time Assistive Devices: Glasses Allergies Allergies Allergy/AdvReac Type Severity Reaction Status Date / Time bee venom protein (honey bee) AdvReac Intermediate RED & Verified 01/13/24 09:31 SWOLLEN @ SITE Home Meds Home Medications Medication Instructions Recorded Confirmed atorvastatin 20 mg tablet 20 mg PO DAILY 04/21/22 01/13/24 valsartan 320 1 tab PO DAILY 04/21/22 01/13/24 mg-hydrochlorothiazide 25 mg tablet Results & Data (ED) Vital Signs Vital Signs - 24 hr 01/13/24 07:54 01/13/24 08:10 01/13/24 08:15 Temperature 36.6 C Temperature Source Oral Pulse Rate 90 192 H 152 H Respiratory Rate 20 Respiratory Effort / Characteristics Non-Labored Spontaneous Respiratory Depth Normal Respiratory Pattern Regular Blood Pressure 125/80 162/94 H Blood Pressure Mean 95 Pulse Oximetry 98 Oxygen Delivery Method Room Air Sepsis Recent Fever Within 48 Hours No Sepsis New/Unexplained Change in Mental Status N/A Sepsis Action Taken by Nursing No Action Required 01/13/24 08:18 01/13/24 08:24 01/13/24 08:25 Temperature Temperature Source Pulse Rate 139 H 140 H 146 H Respiratory Rate 15 17 Respiratory Effort / Characteristics Respiratory Depth Respiratory Pattern Blood Pressure Blood Pressure Mean Pulse Oximetry 97 96 Oxygen Delivery Method Room Air Room Air Sepsis Recent Fever Within 48 Hours Sepsis New/Unexplained Change in Mental Status Sepsis Action Taken by Nursing 01/13/24 08:33 01/13/24 08:48 01/13/24 09:03 Temperature Temperature Source Pulse Rate 141 H 142 H 124 H Respiratory Rate 23 Respiratory Effort / Characteristics Respiratory Depth Respiratory Pattern Blood Pressure 129/85 119/74 Blood Pressure Mean Pulse Oximetry 97 Oxygen Delivery Method Room Air Sepsis Recent Fever Within 48 Hours Sepsis New/Unexplained Change in Mental Status Sepsis Action Taken by Nursing 01/13/24 09:15 01/13/24 09:30 01/13/24 09:32 Temperature Temperature Source Pulse Rate 140 H 140 H 150 H Respiratory Rate 19 17 Respiratory Effort / Characteristics Respiratory Depth Respiratory Pattern Blood Pressure 127/92 127/92 Blood Pressure Mean 103 Pulse Oximetry 97 96 Oxygen Delivery Method Room Air Sepsis Recent Fever Within 48 Hours Sepsis New/Unexplained Change in Mental Status Sepsis Action Taken by Nursing 01/13/24 09:47 01/13/24 10:06 01/13/24 10:39 Temperature Temperature Source Pulse Rate 145 H 127 H 151 H Respiratory Rate 21 14 Respiratory Effort / Characteristics Respiratory Depth Respiratory Pattern Blood Pressure 113/90 124/81 Blood Pressure Mean 97 95 Pulse Oximetry 98 97 Oxygen Delivery Method Room Air Sepsis Recent Fever Within 48 Hours Sepsis New/Unexplained Change in Mental Status Sepsis Action Taken by Nursing 01/13/24 11:03 01/13/24 11:36 Temperature Temperature Source Pulse Rate 126 H 119 H Respiratory Rate 15 14 Respiratory Effort / Characteristics Respiratory Depth Respiratory Pattern Blood Pressure 117/83 114/81 Blood Pressure Mean 94 92 Pulse Oximetry 96 95 Oxygen Delivery Method Room Air Room Air Sepsis Recent Fever Within 48 Hours Sepsis New/Unexplained Change in Mental Status Sepsis Action Taken by Nursing Laboratory Data 01/13/24 08:15 01/13/24 08:15 Lab Results 01/13/24 Range/Units 08:15 WBC 6.11 (4.8-10.8) K/ul RBC 4.79 (4.70-6.10) M/uL Hgb 14.3 (14.0-18.0) g/dl Hct 41.3 L (42.0-52.0) % MCV 86.2 (80.0-100.0) fL MCH 29.9 (25.0-34.0) pg MCHC 34.6 (32.0-36.0) g/dL RDW Std Deviation 38.0 (36.4-46.3) fL RDW Coeff of Maverick 11.9 (11.5-14.5) % Plt Count 204 (130-400) K/uL MPV 10.0 (9.4-12.4) fL Immature Gran % (Auto) 0.5 % Neut % (Auto) 61.3 % Lymph % (Auto) 28.0 % Mcculloch % (Auto) 8.2 % Eos % (Auto) 1.5 % Baso % (Auto) 0.5 % Neut # (Auto) 3.75 (1.40-6.50) K/uL Lymph # (Auto) 1.71 (1.20-3.40) K/uL Mcculloch # (Auto) 0.50 (0.11-0.59) K/uL Eos # (Auto) 0.09 (0.00-0.50) K/uL Baso # (Auto) 0.03 (0.00-0.20) K/uL Immature Gran # (Auto) 0.03 (0.01-0.20) K/uL PT 10.3 (9.0-12.0) Seconds INR 0.9 (0.9-1.1) APTT 27 (21-31) Seconds PTT Ratio 1.0 D-Dimer 200 (0-500) ug/L FEU Sodium 138 (136-145) mmol/L Potassium 3.5 (3.5-5.1) mmol/L Chloride 106 (98-107) mmol/L Carbon Dioxide 20 L (21-32) mmol/L Anion Gap 12 H (3-11) BUN 11 (6-23) mg/dl Creatinine 0.61 (0.6-1.4) mg/dl Est Cr Clr Drug Dosing 208.9 ml/min Est GFR ( Amer) > 150.0 ml/min Est GFR (Non-Af Amer) 130.3 ml/min BUN/Creatinine Ratio 18.0 (10-20) Glucose 93 (70-99(Fasting)) mg/dl Calcium 9.0 (8.6-10.3) mg/dl Magnesium 1.8 (1.7-2.4) mg/dl Total Bilirubin 0.4 (0.2-1.0) mg/dl AST 32 (13-39) U/L ALT 39 (7-52) U/L Alkaline Phosphatase 84 (34-104) U/L Troponin I High Sens 3.6 (0-20) pg/ml Total Protein 7.8 (6.0-8.3) gm/dl Albumin 4.5 (3.4-5.0) gm/dl Globulin 3.3 (2.5-4.0) gm/dl Albumin/Globulin Ratio 1.4 (0.9-2) Lipase 38 (11-82) U/L TSH 4.006 (0.300-4.500) uIu/ml Administered Medications Diltiazem HCl 125 mg/ Dextrose 125 mls @ 15 mls/hr IV .Q8H20M [facility]; Protocol Stop: 02/12/24 10:14 Last Titration: 01/13/24 11:57 Dose: 15 mg/hr, 15 mls/hr Documented By: ASHELY Co-signed By: Titration: 01/13/24 10:56 Dose: 10 mg/hr, 10 mls/hr Documented By: ASHELY Co-signed By: MR Admin: 01/13/24 10:23 Dose: 5 mg/hr, 5 mls/hr Documented By: ASHELY Co-signed By: MR Metoprolol Tartrate (Metoprolol Tartrate 25 Mg Tab) 25 mg PO BID TITA Stop: 02/12/24 13:04 Last Admin: 01/13/24 13:31 Dose: 25 mg Documented By: MS Discontinued Medications Diltiazem HCl (Diltiazem Hcl 5 Mg/Ml 5 Ml Vial) 5 mg IV NOW STA Stop: 01/13/24 10:08 Last Admin: 01/13/24 10:12 Dose: 5 mg Documented By: ASHELY Co-signed By: MR Sodium Chloride (Nss) 1,000 mls @ 999 mls/hr IV .Q1H1M STA Stop: 01/13/24 09:00 Last Infusion: 01/13/24 08:50 Dose: Infused Documented By: Admin: 01/13/24 08:09 Dose: 999 mls/hr Documented By: ASHELY Sodium Chloride (Nss) 1,000 mls @ 999 mls/hr IV .Q1H1M ONE Stop: 01/13/24 09:29 Last Infusion: 01/13/24 10:20 Dose: Infused Documented By: Admin: 01/13/24 08:50 Dose: 999 mls/hr Documented By: ASHELY Labetalol HCl (Labetalol Hcl Iv 5 Mg/Ml 20ml) 5 mg IV NOW STA Stop: 01/13/24 08:07 Last Admin: 01/13/24 08:09 Dose: Not Given Documented By: ASHELY Metoprolol Tartrate (Metoprolol Tartrate 1 Mg/Ml Vial) 5 mg IV NOW STA Stop: 01/13/24 08:09 Last Admin: 01/13/24 08:10 Dose: 5 mg Documented By: ASHELY Metoprolol Tartrate (Metoprolol Tartrate 1 Mg/Ml Vial) 5 mg IV NOW STA Stop: 01/13/24 08:30 Last Admin: 01/13/24 08:48 Dose: 5 mg Documented By: ASHELY Metoprolol Tartrate (Metoprolol Tartrate 1 Mg/Ml Vial) 5 mg IV NOW STA Stop: 01/13/24 09:28 Last Admin: 01/13/24 09:32 Dose: 5 mg Documented By: ASHELY Miscellaneous (Stat Iv Infusion Titration Per Protocol) 1 each N/A NOW STA Stop: 01/13/24 10:08 Last Admin: 01/13/24 10:24 Dose: Not Given Documented By: ASHELY Potassium Chloride (Potassium Chloride Crtab 20 Meq Tabcr) 40 meq PO NOW STA Stop: 01/13/24 13:20 Last Admin: 01/13/24 13:26 Dose: 40 meq Documented By: KS Imaging Data Radiologist's Impression: Chest X-Ray 01/13/24 08:00 XR chest 1V portable CLINICAL HISTORY: Chest pain, nonspecific TECHNIQUE: Single frontal radiograph of the chest was obtained. Comparison: None available at the time of this dictation. FINDINGS: No lines and tubes are seen. The cardiomediastinal silhouette is normal. The lungs are clear. No evidence of pleural effusion or pneumothorax. IMPRESSION: No acute chest disease. ACT 112: Negative or not required by law. Electronically signed by: Parish Flowers M.D. 01/13/2024 8:16 AM Discharge Plan Visit Data Chief Complaint: Cardiac Assessment Stated Complaint: DIZZY, IRREGULAR HEART RATE. CONFUSION ED Provider: Girish Lyons ED Midlevel Provider: Nedra Cutler Discharge Problem: Atrial fibrillation with rapid ventricular response, Palpitations Patient Disposition: Admitted As Inpatient Discharge Instructions Interventions: ED Discharge Assessment Last Done: 01/13/24 12:24
--- NOTE | 2024-01-13 08:17 | XRay Report ---
XR chest 1V portable CLINICAL HISTORY: Chest pain, nonspecific TECHNIQUE: Single frontal radiograph of the chest was obtained. Comparison: None available at the time of this dictation. FINDINGS: No lines and tubes are seen. The cardiomediastinal silhouette is normal. The lungs are clear. No evid ence of pleural effusion or pneumothorax. IMPRESSION: No acute chest disease. ACT 112: Negative or not required by law. Electronically signed by: Parish Flowers M.D. 01/13/2024 8:16 AM
[2024-01-13 08:40] LABS: Basophils # (auto) 0.03 K/uL (0.00-0.20); Basophils % (auto) 0.5 %; Eosinophils # (auto) 0.09 K/uL (0.00-0.50); Eosinophils % (auto) 1.5 %; Hematocrit (blood only) 41.3 % (42.0-52.0); Hemoglobin 14.3 g/dl (14.0-18.0); Immature Granulocytes # (auto) 0.03 K/uL (0.01-0.20); Immature Granulocytes % (auto) 0.5 %; Lymphocytes # (auto) 1.71 K/uL (1.20-3.40); Mean Corpuscular Hemoglobin 29.9 pg (25.0-34.0); Mean Corpuscular Hgb Conc 34.6 g/dL (32.0-36.0); Mean Corpuscular Volume 86.2 fL (80.0-100.0); Monocytes % (auto) 8.2 %; Neutrophils # (auto) 3.75 K/uL (1.40-6.50); Neutrophils % (auto) 61.3 %; Platelet Count 204 K/uL (130-400); RDW Coefficient of Variation 11.9 % (11.5-14.5); Red Blood Count 4.79 M/uL (4.70-6.10); White Blood Count 6.11 K/ul (4.8-10.8)
[2024-01-13] MEDS: SODIUM CHLORIDE 0.9% 1,000 ML IV ONE (08:50)
[2024-01-13 08:53] LABS: Alanine Aminotransferase 39 U/L (7-52); Albumin Globulin Ratio 1.4 (0.9-2); Albumin Level 4.5 gm/dl (3.4-5.0); Alkaline Phosphatase 84 U/L (34-104); Anion Gap 12 (3-11); Aspartate Aminotransferase 32 U/L (13-39); Bilirubin,Total 0.4 mg/dl (0.2-1.0); Blood Urea Nitrogen 11 mg/dl (6-23); Carbon Dioxide 20 mmol/L (21-32); Chloride 106 mmol/L (98-107); Creatinine Clr Calc Pharmacy 208.9 ml/min; Est GFR (African American) > 150.0 ml/min; Est GFR (Non-African American) 130.3 ml/min; Globulin 3.3 gm/dl (2.5-4.0); Glucose 93 mg/dl (70-99(Fasting)); Lipase 38 U/L (11-82); Magnesium 1.8 mg/dl (1.7-2.4); Potassium 3.5 mmol/L (3.5-5.1); Sodium 138 mmol/L (136-145); Total Protein 7.8 gm/dl (6.0-8.3)
[2024-01-13 08:59] LABS: Troponin I High Sensitivity 3.6 pg/ml (0-20)
[2024-01-13 09:03] LABS: D Dimer 200 ug/L FEU (0-500); INR 0.9 (0.9-1.1); Partial Thromboplastin Time 27 Seconds (21-31); Prothrombin Time 10.3 Seconds (9.0-12.0)
[2024-01-13 09:08] LABS: Thyroid Stimulating Hormone 4.006 uIu/ml (0.300-4.500)
[2024-01-13] MEDS: dilTIAZem HCl 5 MG/ML 5 ML VIAL IV STA (10:12)
[2024-01-13] MEDS: dilTIAZem HCL 125 MG in DEXTROSE 5% 100 ML IV SCH (10:23)
[2024-01-13] MEDS: STAT IV Infusion **Titration per Protocol STA (10:24)
--- NOTE | 2024-01-13 12:29 | Electrocardiogram Report ---
Test Reason : Blood Pressure : / mmHG Vent. Rate : 176 BPM Atrial Rate : 000 BPM P-R Int : 000 ms QRS Dur : 088 ms QT Int : 256 ms P-R-T Axes : 000 024 -12 degrees QTc Int : 438 ms Atrial fibrillation with rapid ventricular response with premature ventricular or aberrantly conducte d complexes Abnormal ECG When compared with ECG of 21-APR-2022 17:45, Atrial fibrillation has replaced Sinus rhythm Confirmed by Misael Castellanos ([id number]) on 01/13/2024 12:29:10 PM Referred By: REFERRED SELF Confirmed By:Misael Castellanos
[2024-01-13] MEDS ORDERED: ALUMINUM/MAGNESIUM SUSP 30 ML UDC PO PRN (12:52)
[2024-01-13] MEDS ORDERED: ACETAMINOPHEN 325 MG TAB PO PRN (12:52)
[2024-01-13] MEDS ORDERED: ONDANSETRON INJ 2 MG/ML 2 ML VIAL IV PRN (12:52)
--- NOTE | 2024-01-13 13:02 | History & Physical Report ---
Date of Service January 13, 2024 Assessment & Plan (1) Atrial fibrillation with rapid ventricular response: Plan: Patient presented with palpitations Was found to be in rapid A-fib First-time episode Was given Lopressor IV 3 times in the emergency room. Heart rate still in the 120s. Started on Cardizem drip Patient takes valsartan/hydrochlorothiazide for hypertension. Will hold. Switch to metoprolol tartrate 25 mg p.o. twice daily that will help with blood pressure and heart rate. [id number] score 1. Will not start anticoagulation. Goal: Rate control Ordered echocardiogram TSH normal Electrolytes acceptable but would like potassium greater then 4 and magnesium greater than 2. Will replete Monitor on telemetry (2) HTN (hypertension): Plan: I will hold his home valsartan/hydrochlorothiazide to give room for metoprolol and Cardizem (3) Hyperlipidemia: Plan: Continue statin Admission and Anticipated Discharge Date Admission Date: January 13, 2024 History of Present Illness Chief Complaint: Palpitations since waking up at 5 AM Primary Care Provider: Lexii Ferrer This is a 33-year-old male who presented to the ER with the above chief complaint. He stated that he noticed a pounding sensation in his chest when he woke up this morning. When he took a shower, he was feeling slightly dizzy. Other than the dizziness, he had no other associated symptoms. Denied chest pain or shortness of breath. The patient has been on a keto diet for the last 3 weeks and has lost 15 pounds. He denies taking other supplements for weight loss. Last night, he had 8-10 beers which is a little too much for him. He came to the emergency room, his heart rate was noted to be 1 80-1 90. He was found to be in atrial fibrillation. He was given 3 doses of IV Lopressor in the emergency room that brought his heart rate down to the 120s range and thus I was requested to admit this patient for rate control. Allergies Allergy/AdvReac Type Severity Reaction Status Date / Time bee venom protein (honey bee) AdvReac Intermediate RED & Verified 01/13/24 09:31 SWOLLEN @ SITE Home Medications Medication Instructions Recorded Confirmed Type atorvastatin 20 mg tablet 20 mg PO DAILY 04/21/22 01/13/24 History valsartan 320 1 tab PO DAILY 04/21/22 01/13/24 History mg-hydrochlorothiazide 25 mg tablet Past Med/Surg History Problem List (Updated 01/13/24 @ 13:10 by Kemal Sinclair MD) Hyperlipidemia Atrial fibrillation with rapid ventricular response HTN (hypertension) Elevated TSH Medical History Convulsive syncope Lower lobe pneumonia Social History Smoking Status: Never smoker Hx Alcohol Use: Yes Alcohol type: beer Hx Substance Use: No Preferred Language: Yakut Communication Ability: Effective Racing Secretary Required: No Beliefs That Will Affect Care: None Current Living Situation: Spouse Other Information That Helps Us Care for You: No Feels Safe at Home: Yes Safety Concerns: Feels Safe At This Time Assistive Devices: Glasses Review of Systems Review of Systems: All systems reviewed & are unremarkable except as noted in Subjective Physical Exam Physical Exam: General appearance: Awake, conversant, able to answer questions appropriately. AOx3. Pupils: Equally reactive to light and accommodation Neck: No masses, no thyromegaly Respiration: Clear to auscultation bilaterally. Normal effort Cardiovascular: S1-S2/irregularly irregular rhythm. No murmur, rubs or gallop. No edema. Abdomen: Soft, nontender, nondistended. No hepatosplenomegaly Musculoskeletal: No clubbing, no cyanosis, normal range of motion Skin: No rashes, no nodules Neuro exam: Cranial nerves intact, sensation grossly intact Psychiatric: Patient has good judgment and insight. AOx3. Mood and affect appear normal Lymphatics: No cervical or axillary lymphadenopathy noted Results & Data Results & Data Vital Signs (Past 12 Hours) Vital Signs Temp Pulse Resp BP Pulse Ox O2 Del Method 01/13/24 12:18 123 H 23 111/70 98 Room Air 01/13/24 11:36 119 H 14 114/81 95 Room Air 01/13/24 11:03 126 H 15 117/83 96 Room Air 01/13/24 10:39 151 H 14 124/81 97 Room Air 01/13/24 10:06 127 H 21 113/90 98 01/13/24 09:47 145 H 01/13/24 09:32 150 H 127/92 01/13/24 09:30 140 H 17 127/92 96 01/13/24 09:15 140 H 19 97 Room Air 01/13/24 09:03 124 H 119/74 01/13/24 08:48 142 H 129/85 01/13/24 08:33 141 H 23 97 Room Air 01/13/24 08:25 146 H 01/13/24 08:24 140 H 17 96 Room Air 01/13/24 08:18 139 H 15 97 Room Air 01/13/24 08:15 152 H 01/13/24 08:10 192 H 162/94 H 01/13/24 07:54 36.6 C 90 20 125/80 98 Room Air Laboratory Results Abnormal lab results 01/13/24 Range/Units 08:15 Hct 41.3 L (42.0-52.0) % Carbon Dioxide 20 L (21-32) mmol/L Anion Gap 12 H (3-11) Diagnostic Findings Chest X-Ray 01/13/24 08:00 XR chest 1V portable CLINICAL HISTORY: Chest pain, nonspecific TECHNIQUE: Single frontal radiograph of the chest was obtained. Comparison: None available at the time of this dictation. FINDINGS: No lines and tubes are seen. The cardiomediastinal silhouette is normal. The lungs are clear. No evidence of pleural effusion or pneumothorax. IMPRESSION: No acute chest disease. ACT 112: Negative or not required by law. Electronically signed by: Parish Flowers M.D. 01/13/2024 8:16 AM Code Status & VTE Plan VTE Prophylaxis Plan VTE Prophylaxis will be ordered: Yes PG Care Time/CCT Total # of Minutes Spent Total Time Spent with Patient: Total time spent is greater than 50% in coordination of care (as documented) at patient's floor/unit and/or counseling patient: Coding Level of Care Code 37350 INT INP/OBS CARE 2/55MIN Diagnoses Atrial fibrillation with rapid ventricular response I48.91 HTN (hypertension) I10 Hyperlipidemia E78.5
[2024-01-13] MEDS: POTASSIUM CHLORIDE CRTAB 20 MEQ TABCR PO STA (13:26)
[2024-01-13] MEDS: METOPROLOL TARTRATE 25 MG TAB PO SCH (13:31)
[2024-01-14 06:27] LABS: BUN Creatinine Ratio 13.3 (10-20); Calcium 8.9 mg/dl (8.6-10.3); Est GFR (African American) 138.7 ml/min; Est GFR (Non-African American) 119.7 ml/min; Potassium 3.9 mmol/L (3.5-5.1)
[2024-01-14 07:14] VITALS: TEMP 98.1
[2024-01-14] MEDS: ATORVASTATIN 20 MG TAB PO SCH (08:35)
[2024-01-14 10:57] VITALS: BP 107/70; PULSE 76; RESP 19; O2SAT 97
--- NOTE | 2024-01-14 12:26 | XCELERA ---
[id number]
--- NOTE | 2024-01-14 12:37 | Discharge Summary ---
Date of Service January 14, 2024 Admission HPI Per Admitting Provider This is a 33-year-old male who presented to the ER with the above chief complaint. He stated that he noticed a pounding sensation in his chest when he woke up this morning. When he took a shower, he was feeling slightly dizzy. Other than the dizziness, he had no other associated symptoms. Denied chest pain or shortness of breath. The patient has been on a keto diet for the last 3 weeks and has lost 15 pounds. He denies taking other supplements for weight loss. Last night, he had 8-10 beers which is a little too much for him. He came to the emergency room, his heart rate was noted to be 1 80-1 90. He was found to be in atrial fibrillation. He was given 3 doses of IV Lopressor in the emergency room that brought his heart rate down to the 120s range and thus I was requested to admit this patient for rate control. Admission Exam Per Admitting Provider General appearance: Awake, conversant, able to answer questions appropriately. AOx3. Pupils: Equally reactive to light and accommodation Neck: No masses, no thyromegaly Respiration: Clear to auscultation bilaterally. Normal effort Cardiovascular: S1-S2/irregularly irregular rhythm. No murmur, rubs or gallop. No edema. Abdomen: Soft, nontender, nondistended. No hepatosplenomegaly Musculoskeletal: No clubbing, no cyanosis, normal range of motion Skin: No rashes, no nodules Neuro exam: Cranial nerves intact, sensation grossly intact Psychiatric: Patient has good judgment and insight. AOx3. Mood and affect appear normal Lymphatics: No cervical or axillary lymphadenopathy noted Principal Diagnosis New diagnosis of atrial fibrillation with rapid ventricular response Discharge Exam General: Awake, conversant Heart: S1, S2/regular rate and rhythm, no murmur rubs or gallops Lungs: Clear to auscultation bilaterally. Normal effort Abdomen: Soft/nontender/nondistended. No hepatosplenomegaly Extremities: No clubbing/cyanosis. No edema Behavior: Appropriate, cooperative Discharge Data Allergies Allergy/AdvReac Type Severity Reaction Status Date / Time bee venom protein (honey bee) AdvReac Intermediate RED & Verified 01/13/24 09:31 SWOLLEN @ SITE Consultations 01/13/24 09:49 ED Decision to Admit Stat Hospital Course (1) Atrial fibrillation with rapid ventricular response: Patient presented with palpitations Was found to be in rapid A-fib First-time episode Was given Lopressor IV 3 times in the emergency room. Heart rate still in the 120s. Started on Cardizem drip Patient takes valsartan/hydrochlorothiazide for hypertension. Switched to metoprolol tartrate 25 mg p.o. twice daily that will help with blood pressure and heart rate. [id number] score 1. Will not start anticoagulation. Goal: Rate control Echocardiogram unremarkable TSH normal Electrolytes acceptable but would like potassium greater then 4 and magnesium greater than 2. Repleted Converted to sinus rhythm Discontinued Cardizem drip Discharge the patient on metoprolol 25 mg p.o. twice daily and off of valsartan/hydrochlorothiazide. Blood pressure and heart rate stable on this regimen. (2) HTN (hypertension): Discontinue valsartan/hydrochlorothiazide Started metoprolol 25 mg p.o. twice daily (3) Hyperlipidemia: Continue statin Total Time Total Time Spent Total Time Spent (In Minutes): 35 Discharge Plan Discharge Items Patient Disposition: Home - Self-Care Reason For Visit: PALPITATIONS Discharge Diagnosis: New diagnosis of atrial fibrillation with rapid ventricular response Activity: Resume your previous activity Non-emergency contact: Primary Care Provider Call non-emergency contact if: you have any medication questions and your symptoms worsen Follow-up/Referrals: Lexii Ferrer M.D. [Primary Care Provider] - Diet: Heart Healthy Addtl Attending Provider Instructions: Advised to follow-up with your PCP in 1 week Pending Studies at Discharge: No Stand-Alone Forms: My [facility] Medications and DC Order Prescriptions: New metoprolol tartrate 25 mg Tablet 25 mg PO BID 30 Days Qty: 60 0RF Continued atorvastatin 20 mg tablet 20 mg PO DAILY Discontinued valsartan-hydrochlorothiazide 320-25 mg tablet 1 tab PO DAILY Discharge Orders: Discharge Order (Routine); Ordered 01/14/24 Ordered By: Kemal Sinclair Admission Data Admit Date/Time: 01/13/24 11:49 Attending Provider: Kemal Sinclair Admit Provider: Kemal Sinclair Primary Care Provider: Lexii Ferrer Other Providers: Kemal Sinclair Other Interventions: Discharge Summary Assessment (RN) Last Done: 01/14/24 13:58 Coding Level of Care Code 30289 INP/OBS DISCH >30 MIN Diagnoses Atrial fibrillation with rapid ventricular response I48.91 HTN (hypertension) I10 Hyperlipidemia E78.5
== END 2024-01-14 14:35 | disposition home or self-care (01) | DRG 310 ==
LOC: ED 07:46 → 2S 11:49